=== PATIENT | male | born 1950 | race Caucasian/White ===

== ENCOUNTER 2017-05-02 12:58 | Emergency (ER) | payer BC ==
[2017-05-02] MEDS ORDERED: CIPROFLOXACIN 500 MG TAB PO ONE (14:26)
[2017-05-02] MEDS ORDERED: predniSONE 20 MG TAB PO ONE (14:27)
[2017-05-02] MEDS ORDERED: KETOROLAC TROMETHAMINE INJ 30 MG/ML VIAL IM ONE (14:27)
--- NOTE | 2017-05-02 14:29 | ED.PDOC ---
History of Present Illness - General Chief Complaint: Problem Stated Complaint: Painful, swollen R testicle Time Seen by Provider: 05/02/17 13:12 Source: patient Exam Limitations: no limitations - History of Present Illness Initial Comments: the patient is a 66-year-old male presenting to the emergency room secondary to swelling of the right testicle with associated pain for the last 24 hours. no fevers chills nausea vomiting or diarrhea. He has been having some urinary hesitancy and mild dysuria for the last month. No history of any prostate problems. He did have a colon resection in the not too distant past forulcerative colitis. He has not had any recent flares. No difficulties with his bowel recently. Timing/Duration: unsure Severity: moderate Improving Factors: nothing Worsening Factors: nothing Associated Symptoms: denies symptoms Allergies/Adverse Reactions: Allergies NO KNOWN ALLERGY Allergy (Verified 05/02/17 13:18) Home Medications: Ambulatory Orders Ciprofloxacin [Cipro] 500 mg PO BID #42 tab 05/02/17 Red Pill For Gu System 1 each PO BIDFD 05/02/17 Review of Systems - Review of Systems Constitutional: States: malaise EENTM: States: no symptoms reported Respiratory: States: no symptoms reported Cardiology: States: no symptoms reported Gastrointestinal/Abdominal: States: no symptoms reported Genitourinary: States: dysuria Musculoskeletal: States: no symptoms reported Skin: States: no symptoms reported Neurological: States: no symptoms reported All other Systems: No Change from Baseline Past Medical History (General) - Patient Medical History Hx Stroke: No Hx Congestive Heart Failure: No Hx Diabetes: No Surgical History: colectomy, other - Vaccination History Hx Influenza Vaccination: No Hx Pneumococcal Vaccination: No - Social History Hx Tobacco Use: Yes - Quit 1998 Family Medical History - Family History Father Family History: No Known Living Status: Physical Exam - Physical Exam General Appearance: Alert, No apparent distress Eye Exam: bilateral normal Ears, Nose, Throat: hearing grossly normal, normal ENT inspection Neck: non-tender, full range of motion, supple Respiratory: lungs clear, normal breath sounds, no respiratory distress, no accessory muscle use Cardiovascular/Chest: normal peripheral pulses, regular rate, rhythm, no edema Peripheral Pulses: radial,right: 2+, radial,left: 2+, dorsalis pedis,right: 2+, dorsalis pedis,left: 2+ Gastrointestinal/Abdominal: non tender, soft Rectal Exam: other - right testicle is swollen and mildly erythematous. There is some tenderness to palpation of the spermatic cordand epididymis Back Exam: no CVA tenderness, no vertebral tenderness Extremity: normal range of motion, non-tender, normal inspection, no pedal edema , normal capillary refill Neurologic: vp talent management II-XII nml as tested, alert, normal mood/affect, oriented x 3 Skin Exam: normal color Comments: Vital Signs - 24 hr 05/02/17 13:21 Temperature 99.9 F H Pulse Rate [ 85 Left Radial] Respiratory 20 Rate Blood Pressure 136/84 [Left Arm] O2 Sat by Pulse 96 Oximetry Progress - Progress Progress: 05/02/17 14:30 the patient is a 66-year-old male presenting to the emergency room secondary to what appears to be fairly apparent epididymitis and orchitis on the right of a shorter duration with possible associated longer standing prostatitis and UTI based on labs. Culture will be performed. The patient is receiving a dose of Rocephin here and we placed on ciprofloxacin for 21 days. Additionally he should obtain some saw palmetto and start taking that as a supplement for now. He should also plan on following up with urology for a formal prostate evaluation in 2-3 weeks. ER warnings were given for any worsening. - Results/Orders Results/Orders: Laboratory Tests 05/02/17 05/02/17 05/02/17 13:27 13:38 13:38 WBC 16.0 H RBC 5.40 Hgb 16.4 Hct 47.1 MCV 87.2 MCH 30.3 MCHC 34.7 RDW 12.6 Plt Count 345 MPV 7.5 Absolute Neuts (auto) 13.30 H Absolute Lymphs (auto) 1.00 Absolute Monos (auto) 1.30 H Absolute Eos (auto) 0.20 Absolute Basos (auto) 0.20 H Neutrophils % 83.1 H Lymphocytes % 6.3 L Monocytes % 8.4 Eosinophils % 1.0 Basophils % 1.2 Sodium 137 Potassium 3.9 Chloride 106 Carbon Dioxide 24 Anion Gap 10.9 L BUN 21 H Creatinine 0.96 BUN/Creatinine Ratio 21.9 H Random Glucose 102 Serum Osmolality 277.0 Calcium 9.1 Total Bilirubin 0.6 AST 20 ALT 20 Alkaline Phosphatase 62 Serum Total Protein 7.7 Albumin 4.1 Globulin 3.6 H Albumin/Globulin Ratio 1.1 Total PSA Urine Color Yellow Urine Appearance Sl cloudy Urine pH 5.5 Ur Specific [place] 1.015 Urine Protein Negative Urine Glucose (UA) Negative Urine Ketones Negative Urine Blood Moderate H Urine Nitrite Negative Urine Bilirubin Negative Urine Urobilinogen 0.2 Ur Leukocyte Esterase Moderate H Urine RBC 10-20 H Urine WBC 10-20 H Ur Epithelial Cells 0 Urine Bacteria 2+ H 05/02/17 13:38 WBC RBC Hgb Hct MCV MCH MCHC RDW Plt Count MPV Absolute Neuts (auto) Absolute Lymphs (auto) Absolute Monos (auto) Absolute Eos (auto) Absolute Basos (auto) Neutrophils % Lymphocytes % Monocytes % Eosinophils % Basophils % Sodium Potassium Chloride Carbon Dioxide Anion Gap BUN Creatinine BUN/Creatinine Ratio Random Glucose Serum Osmolality Calcium Total Bilirubin AST ALT Alkaline Phosphatase Serum Total Protein Albumin Globulin Albumin/Globulin Ratio Total PSA 7.51 H Urine Color Urine Appearance Urine pH Ur Specific [place] Urine Protein Urine Glucose (UA) Urine Ketones Urine Blood Urine Nitrite Urine Bilirubin Urine Urobilinogen Ur Leukocyte Esterase Urine RBC Urine WBC Ur Epithelial Cells Urine Bacteria Departure - Departure Clinical Impression: Epididymitis Disposition: Discharge to Home or Self Care Condition: Fair Departure Forms: ED Discharge - Pt. Copy, Patient Portal Self Enrollment Instructions: DI for Epididymitis, DI for Acute Prostatitis Diet: regular diet Activity: increase activity as tolerated Referrals: Efraín Smith III, MD [Primary Care Provider] - 1-2 Weeks Prescriptions: Ciprofloxacin [Cipro] 500 mg PO BID #42 tab Home Medications: Ambulatory Orders Ciprofloxacin [Cipro] 500 mg PO BID #42 tab 05/02/17 Red Pill For Gu System 1 each PO BIDFD 05/02/17 Additional Instructions: the patient is a 66-year-old male presenting to the emergency room secondary to what appears to be fairly apparent epididymitis and orchitis on the right of a shorter duration with possible associated longer standing prostatitis and UTI based on labs. Culture will be performed. The patient is receiving a dose of Rocephin here and we placed on ciprofloxacin for 21 days. Additionally he should obtain some saw palmetto and start taking that as a supplement for now. He should also plan on following up with urology for a formal prostate evaluation in 2-3 weeks. ER warnings were given for any worsening.
[2017-05-02] MEDS ORDERED: cefTRIAXone SODIUM 1 GM VIAL IM ONE (14:30)
[2017-05-02] MEDS ORDERED: LIDOCAINE 1% 10 ML VIAL INJ ONE (14:42)
[2017-05-02 15:11] VITALS: TEMP 98.4
[2017-05-02 15:28] VITALS: BP 128/66; O2SAT 97
== END 2017-05-02 15:25 | disposition home or self-care (01) ==
LOC: ER 12:58
DX: N45.1 Epididymitis (principal); Z87.891 Personal history of nicotine dependence
CPT/HCPCS: 36415; 80053; 81001; 85025; 87086; 87088; 87186; G0103; J0696; J1885; J7512

== ENCOUNTER 2017-05-07 17:01 | Inpatient (IN) | payer BC ==
--- NOTE | 2017-05-07 17:03 | HP ---
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 This pain got worse and was located in the testicular region as well as into the right aspect of his upper thigh. He was referred to the Emergency Room on May 02 of this year which was last Friday. He saw a nurse practitioner who referred him to the Emergency Room at that time. He was given a diagnosis of epididymitis and questionable torsion. He was seen in the Emergency Room and was noted to have a white count of 16,000 and was given a shot of Rocephin and Cipro tablets to continue. His general condition is worsened with the pain elevating to involve the suprapubic region. Urinalysis from the Emergency Room did grow Klebsiella species. He also had an elevated PSA of over 7. He was seen in the clinic with Dr. Smith earlier today and was found to have an elevated white count of over 17,000 which was greater than it was last Friday. He has had some low-grade fever and generalized malaise. He has lost about 5 pounds of weight. He has not been able to eat or drink that much and is having difficulty working as a arc welder because of the pain. Dr. Smith wishes the patient to be admitted specifically to continue with a more vigorous and parenteral antibiotic program, but also to get additional studies, including ultrasound, etc. PAST MEDICAL HISTORY: Otherwise unremarkable. PAST SURGICAL HISTORY: 1. Sigmoid colectomy with subsequent colostomy placed in the left abdomen. 2. Bruno pouch to help close off the rectal region, this being performed in 2009. CURRENT MEDICATIONS: 1. A medicine he takes for his ulcerative colitis which we are encouraging the family to bring from home. ALLERGIES: NONE KNOWN. FAMILY HISTORY: Negative. 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 He stopped smoking in about 1981. REVIEW OF SYSTEMS: Some 5 pound weight loss in the last week. Low-grade fever and mild chills evident recently. HEENT: Hearing and vision appear to be normal. LUNGS: No significant cough, shortness of breath or sputum production. CARDIOVASCULAR: No chest pains or palpitations. ABDOMEN: Soft with tenderness especially in the lower quadrants. Bowel tones are present. No organomegaly evident. GENITOURINARY: Very large, firm, heavy right testicle is noted which is very tender to palpation. No significant hernia associated with these symptoms at this time. NEUROLOGIC: He feels a little weak and no significant headaches at this time. PHYSICAL EXAMINATION: VITAL SIGNS: Temperature 97.7 but it was 99.9 in the Emergency Room. Pulse 85 , blood pressure 132/80, pulse oximetry 98% on room air. Weight 71.2 kilos. GENERAL: The patient is awake, alert and oriented, and a good communicator and a good historian. HEENT: Unremarkable. NECK: Supple. CHEST: Lungs are clear. Slightly diminished breath sounds. CARDIOVASCULAR: Heart tones somewhat distant yet fairly normal. ABDOMEN: Soft with marked tenderness, especially in the lower quadrants and suprapubically. No masses noted. GENITOURINARY: Right testes is heavy, much larger than the left, very tender and quite firm to palpation. Slight irregularities at the tip inferiorly and some soft swelling over the base superiorly. There is no tenderness in the epididymis on the left and most of the tenderness is within the testes on the right. EXTREMITIES: Within normal limits. NEUROLOGIC: Within normal limits. LABORATORY STUDIES: White count was 16,000 in the Emergency Room last Friday and was over 17,[address] Smith' office today. His original urinalysis did show pyuria, hematuria and 2+ bacteriuria which grew Klebsiella pneumoniae which showed resistance to Nitrofurantoin, Piperacillin as well as Augmentin. Chemistry showed potassium 3.9 last Friday while PSA was elevated at 7.5, BUN 21. Blood count then was 16,000 with 83% neutrophils, hemoglobin was 16.4 on . No x-ray reports. ASSESSMENT: 1. Acute right testicular pain with marked swelling, firmness and heaviness suggesting a testicular abscess with ultrasound to also evaluate for the possibility of an ischemic or torsion of the testicle and possibility of epididymitis. 2. Acute prostatitis with elevated PSA. 3. Urinary tract infection with Klebsiella noted on recent ER urine specimen. 4. Leukocytosis increasing from 16,000 to 17,000 even on outpatient treatment. 5. History of ulcerative colitis with sigmoid colectomy and colostomy to the left colon with Bruno's pouch of rectal residual. PLAN: The patient will be started on Levaquin parenterally 750 mg daily. To this will be added Doxycycline 100 mg b.i.d. Hot and cold compresses to scrotal support necessary. Pain control important. Try Align b.i.d. Repeat urinalysis and get an ultrasound in the morning of the testicles specifically to evaluate for abscess and vascularity, etc. [facility][id number] [facility]
[2017-05-07] MEDS ORDERED: SODIUM CHLORIDE 0.9% (FLUSH) 10 ML SYG IV PRN (17:47)
[2017-05-07] MEDS ORDERED: MAGNESIUM HYDROXIDE 30 ML UD PO PRN (17:52)
[2017-05-07] MEDS ORDERED: HYDROcodone 5MG/APAP 325MG 1 EA TAB PO PRN (17:52)
[2017-05-07] MEDS: BIFIDOBACTERIUM INFANTIS 4 MG CAP PO SCH ×2 (18:40→20:28)
[2017-05-07] MEDS: levoFLOXacin 750MG IV 750 MG in PREMIX BAG 1 BAG IVPB SCH (18:40)
[2017-05-07] MEDS: KETOROLAC TROMETHAMINE INJ 30 MG/ML VIAL IV SCH (18:40)
[2017-05-07] MEDS: IV SET AND CAP CHANGE INJ INJ SCH (18:49)
[2017-05-07] MEDS: DOXYCYCLINE HYCLATE CAP 100 MG CAP PO SCH (20:27)
[2017-05-07] MEDS: SODIUM CHLORIDE 0.9% 1000ML 1,000 ML IVS PRN (20:28)
[2017-05-08] MEDS: KETOROLAC TROMETHAMINE INJ 30 MG/ML VIAL IV SCH ×4 (01:18→17:14)
[2017-05-08] MEDS: OMEPRAZOLE CAP 20 MG CAP PO SCH (05:39)
[2017-05-08] MEDS ORDERED: [UNRECOGNIZED DRUG - OTHER] PO SCH (07:30)
[2017-05-08] MEDS: SODIUM CHLORIDE 0.9% 1000ML 1,000 ML IVS PRN ×2 (08:45→21:16)
[2017-05-08] MEDS: BIFIDOBACTERIUM INFANTIS 4 MG CAP PO SCH ×2 (08:50→21:14)
[2017-05-08] MEDS: DOXYCYCLINE HYCLATE CAP 100 MG CAP PO SCH ×2 (08:50→21:14)
[2017-05-08] MEDS: HYDROcodone 10MG/APAP 325MG 1 EA TAB PO PRN ×3 (12:49→21:15)
--- NOTE | 2017-05-08 13:53 | US ---
EXAM DESCRIPTION: Testicular CLINICAL HISTORY: 66 years Male, painful, swollen right teste COMPARISON: None. TECHNIQUE: Real-time sonographic images of the scrotum are obtained. FINDINGS: The right testicle measures 3.6 x 2.8 x 2.5 cm. The left testicle measures 4.3 x 2.6 x 2.6 cm. Both testicles demonstrate normal homogeneous echogenicity and normal symmetric vascular flow. The right epididymis measures 1.5 x 2.1 cm. Right epididymis is somewhat heterogeneous in echogenicity and mildly increased vascular flow. The left epididymal head measures 1.1 x 1.3 cm. Small anechoic fluid collection is seen in the right scrotum with trace anechoic fluid on the left. IMPRESSION: Mild simple right hydrocele with trace left hydrocele. Findings suggest right epididymitis. Electronically signed by: Kan Jolly MD 05/08/2017 1:52 PM CDT
[2017-05-08] MEDS: levoFLOXacin 750MG IV 750 MG in PREMIX BAG 1 BAG IVPB SCH (17:15)
[2017-05-08] MEDS: MESALAMINE 1.2 GM PO SCH (17:24)
--- NOTE | 2017-05-08 19:51 | PCM.CORE ---
Physician DVT/VTE - Nurse DVT Assessment & Total Each Risk Factor Represents 2 Points: Age 60-74 DVT Assessment Score: 2 - 2 Moderate Risk Treatments: Early Ambulation *, Sequential Compression Device Pharmacological: Enoxaparin 40mg SQ Daily
--- NOTE | 2017-05-08 19:57 | PN ---
DATE: 05/08/17 SUBJECTIVE: The patient has been in the bed most of the day and is encouraged to increase activity level. Still with a fair amount of pain most likely less noted in the lower abdomen region. No significant fever. Appetite is good. He continues on his special medications for his chronic ulcerative colitis. OBJECTIVE: Afebrile, blood pressure 136/69, pulse oximetry 96%. The patient is alert in no acute distress. ABDOMEN: Shows some tenderness in the lower abdomen still with marked tenderness and swelling of the right testicle, though seemingly less tender today compared to yesterday. LABORATORY: White count 12,900 with 81% neutrophils, hemoglobin 14.7. Chemistries are generally within normal limits except the albumin is 2.9. Urinalysis shows some ketones. No cultures obtained. Testicular ultrasound performed and is consistent with a right epididymitis as well as a mild simple right hydrocele and a trace left hydrocele. ASSESSMENT: 1. Acute right epididymitis having failed outpatient therapy currently on parenteral therapy. 2. Evidence of prostatitis with elevated PSA. 3. Leukocytosis showing some improvement. 4. History of chronic ulcerative colitis currently on chronic medication to assist with suppression of symptoms named Lialda 1.2 gram tablet b.i.d. PLAN: Continue parenteral IV therapy and reevaluate in the morning. Increase activity level. Continue with DVT prophylaxis and close observation. [facility][id number]
[2017-05-08] MEDS ORDERED: ENOXAPARIN SODIUM 40 MG/0.4 ML SYG SUBCU SCH (20:00)
[2017-05-08] MEDS ORDERED: KETOROLAC TROMETHAMINE INJ 30 MG/ML VIAL ONE (20:08)
[2017-05-09] MEDS ORDERED: ALUM & MAG HYDROX-SIMETHICONE 30 ML UD PO PRN (03:41)
[2017-05-09] MEDS ORDERED: traMADol HCL 50 MG TAB PO PRN (03:42)
[2017-05-09] MEDS: ONDANSETRON INJ 4 MG/2 ML VIAL IV PRN ×3 (03:45→19:39)
[2017-05-09] MEDS: OMEPRAZOLE CAP 20 MG CAP PO SCH (06:10)
[2017-05-09] MEDS: SODIUM CHLORIDE 0.9% 1000ML 1,000 ML IVS PRN ×2 (09:30→21:45)
[2017-05-09] MEDS: MESALAMINE 1.2 GM PO SCH ×2 (09:57→17:26)
[2017-05-09] MEDS: DOXYCYCLINE HYCLATE CAP 100 MG CAP PO SCH ×2 (09:58→20:25)
[2017-05-09] MEDS: BIFIDOBACTERIUM INFANTIS 4 MG CAP PO SCH ×2 (09:58→20:25)
--- NOTE | 2017-05-09 14:54 | PN ---
DATE: 05/09/17 SUBJECTIVE: The patient is lying in the bed resting. He has had spells where his lower abdomen tends to act up with associated nausea, especially noted during the night. The pain in the testicle seems to be slightly improved. He has tolerated increased activity quite well, but still with very poor appetite with getting nauseated even at the smell of food. No previous history of fatty food intolerance. OBJECTIVE: Current pain in his abdomen seems to be towards the left lower quadrant below the ostomy site. He describes no discomfort in the right upper quadrant or the right side of the abdomen in the region of the gallbladder. His ostomy is still nicely functional with some somewhat semi-liquid stool being present. LABORATORY: White count down to 12,900 from 17,000 yesterday, but still elevated. Hemoglobin 14.7. Of significance is an elevated C-reactive protein of 19 with repeat tomorrow to evaluate potentially the clinical significance thereof. Chemistries otherwise within normal limits, still with some decreased serum osmolality, slowly improving. Urinalysis showed ketonuria, otherwise clean. No cultures obtained. Testicular ultrasound did reveal a fairly large right hydrocele and a small one on the left with evidence of fairly significant right epididymitis on ultrasound exam with treatment to continue. ASSESSMENT: 1. Acute, symptomatic right epididymitis, having failed outpatient therapy and currently on parenteral fluoroquinolone as well as p.o. doxycycline treatment. 2. Evidence of prostatitis with elevated PSA with results in the clinic. 3. Leukocytosis, persistent with some slight improvement with followup necessary. 4. History of chronic ulcerative colitis, currently on chronic medication to assist with suppression of symptoms, the medicine being named Lialda 1.2 gram tablet b.i.d. 5. Nausea and vomiting, possibly related to [place], but continue evaluation for intraabdominal pathology. 6. A small skin tag or dermal papilloma on the tip of his nose which is of significant concern to the and can be approached nicely in the outpatient clinic with Dr. Smith' good care. PLAN: Continue one more evening of Levaquin parenteral therapy. Recheck CBC as well as C-reactive protein in the morning, hopefully showing some improvement. Try to give tramadol instead of [place] for pain relief. Increase activity levels and close observation necessary. Dr. Smith can approach and remove the skin tag from the nose by several means at his disposal. [facility][id number] [facility]
[2017-05-09] MEDS: levoFLOXacin 750MG IV 750 MG in PREMIX BAG 1 BAG IVPB SCH (18:15)
[2017-05-09] MEDS ORDERED: ENOXAPARIN SODIUM 40 MG/0.4 ML SYG SUBCU ONE (19:11)
[2017-05-09] MEDS: ENOXAPARIN SODIUM 40 MG/0.4 ML SYG SUBCU SCH (20:25)
[2017-05-10] MEDS: ONDANSETRON INJ 4 MG/2 ML VIAL IV PRN (05:58)
[2017-05-10] MEDS: OMEPRAZOLE CAP 20 MG CAP PO SCH (05:58)
[2017-05-10] MEDS: MESALAMINE 1.2 GM PO SCH ×2 (08:30→17:16)
[2017-05-10] MEDS: DOXYCYCLINE HYCLATE CAP 100 MG CAP PO SCH ×2 (09:49→20:50)
[2017-05-10] MEDS: BIFIDOBACTERIUM INFANTIS 4 MG CAP PO SCH ×2 (09:49→20:50)
[2017-05-10] MEDS: SODIUM CHLORIDE 0.9% 1000ML 1,000 ML IVS PRN (10:30)
[2017-05-10] MEDS: ACETAMINOPHEN 325 MG TAB PO PRN ×2 (11:56→16:30)
[2017-05-10] MEDS: levoFLOXacin 750MG IV 750 MG in PREMIX BAG 1 BAG IVPB SCH (17:16)
[2017-05-10] MEDS: IV SET AND CAP CHANGE INJ INJ SCH (18:08)
[2017-05-10] MEDS ORDERED: traMADol HCL 50 MG TAB PO PRN (20:09)
[2017-05-10] MEDS: SODIUM CHLORIDE 0.9% (FLUSH) 10 ML SYG IV SCH (20:40)
--- NOTE | 2017-05-10 20:45 | PN ---
DATE: 05/10/17 SUPERVISING PHYSICIAN: Marty Gallagher M.D. SUBJECTIVE: The patient is sitting in his hospital bed. is at the bedside. He continues complaints of a mild headache, although he has not asked for anything for his headache. I have encouraged him to ask for his Tylenol. He denies any testicular pain but he does say that he is nauseated and has not eaten very much. He also says that he has has vomited numerous times and although the nursing staff has asked him to let them see his emesis, he says he has vomited in the sink and has not called nursing to see it. He does say that he has eaten a few snacks that his has brought in. He denies any significant abdominal pain, chest pain or shortness of breath. OBJECTIVE: VITAL SIGNS: His T max 24 hours is 99.1, heart rate 67, blood pressure 143/76, respiratory rate 20, O2 sat is 100% on room air. RESPIRATORY: Clear to auscultation bilaterally. CARDIAC: Regular rate and rhythm. ABDOMEN: Soft, nondistended, non-tender. Bowel sounds are positive. EXTREMITIES: No cyanosis, clubbing or edema. NEUROLOGIC: He is awake, alert and oriented times three. LABORATORY: Chemistries are basically within normal limits with the exception of his glucose is slightly elevated at 114 and serum osmolality is slightly low at 272.5. C reactive protein has come down to 13.2. WBCs are improved but are still 11 with neutrophils of 79.4. Hemoglobin and hematocrit are 13.4 and 39.0. All other labs and films have been reviewed via the EMR. ASSESSMENT: 1. Acute symptomatic right epididymitis having failed outpatient treatment and currently on parenteral Levaquin as well as p.o. Doxycycline. 2. Evidence of prostatitis with elevated PSA as outpatient examination. 3. Leukocytosis that is persistent but with some improvement. 4. History of chronic ulcerative colitis currently on chronic medications to assist with suppressing of symptoms. 5. Nausea and vomiting that persists. 6. Headache of unknown origin most likely stress related although he has not requested any treatment at this time. PLAN: We will continue present supportive care. I had hoped to discharge him today, but with his continued nausea and reported vomiting I will evaluate his intake of food today. Previously he had been taking oral fluids without any problems. I will discontinue his IV fluids for now and restart if needed. I will also repeat some lab in the morning and continue him on IV Levaquin. Hopefully in the morning his labs improve and he is tolerating food without any problems.,he can be discharged home with close followup with his primary care physician, Dr. Smith, next week. We will continue him on his Doxycycline on discharge and he can resume his Cipro from his previous clinic appointment. Otherwise we will continue to monitor him closely and followup as needed. Dr. Gallagher is the collaborating physician available for consultation. #[id number] [facility]
[2017-05-10] MEDS: ENOXAPARIN SODIUM 40 MG/0.4 ML SYG SUBCU SCH (20:51)
[2017-05-11] MEDS: OMEPRAZOLE CAP 20 MG CAP PO SCH (05:48)
[2017-05-11] MEDS: ACETAMINOPHEN 325 MG TAB PO PRN (05:52)
[2017-05-11] MEDS ORDERED: POTASSIUM CHLORIDE 20 MEQ TAB PO ONE (07:41)
[2017-05-11] MEDS ORDERED: CIPROFLOXACIN 500 MG TAB ONE (07:55)
[2017-05-11] MEDS: MESALAMINE 1.2 GM PO SCH (08:10)
[2017-05-11] MEDS: DOXYCYCLINE HYCLATE CAP 100 MG CAP PO SCH (08:11)
[2017-05-11] MEDS: BIFIDOBACTERIUM INFANTIS 4 MG CAP PO SCH (08:11)
[2017-05-11] MEDS: SODIUM CHLORIDE 0.9% (FLUSH) 10 ML SYG IV SCH (08:11)
[2017-05-11 08:25] VITALS: BP 135/74; TEMP 97.5; O2SAT 100
[2017-05-11] MEDS ORDERED: CIPROFLOXACIN 500 MG TAB PO SCH (09:00)
--- NOTE | 2017-05-11 16:46 | DS ---
DISCHARGE DIAGNOSES: 1. Acute symptomatic right epididymitis having failed outpatient treatment and on Levaquin and Doxycycline in the hospital. He was treated with oral Cipro as an outpatient. 2. Evidence of prostatitis with elevated PSA as outpatient examination. 3. Leukocytosis that is persistent but with some improvement. 4. History of chronic ulcerative colitis currently on chronic medications to assist with suppressing of symptoms. 5. Nausea and vomiting that has resolved. 6. Headache of unknown origin most likely stress related, the pain has been alleviated with Tylenol. 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 This pain got worse and was located in the testicular region as well as into the right aspect of his upper thigh. He saw a nurse practitioner who referred him to the Emergency Room at that time. He was given a diagnosis of epididymitis and questionable torsion. He was seen in the Emergency Room and was noted to have a white count of 16,000 and was given a shot of Rocephin and Cipro tablets to continue. His general condition is worsened with the pain elevating to involve the suprapubic region. Urinalysis from the Emergency Room did grow Klebsiella species. He also had an elevated PSA of over 7. He was seen in the clinic with Dr. Smith on date of admission and was found to have an elevated white count of over 17,000 which was greater than it was last Friday. He has had some low-grade fever and generalized malaise. He has lost about 5 pounds of weight. 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 Patient was admitted from Dr. Smith' office specifically to continue with a more vigorous and parenteral antibiotic program, but also to get additional studies, including ultrasound, etc. HOSPITAL COURSE: The patient was given high-dose IV Levaquin as well as put on doxycycline in the hospital. His testicular ultrasound was performed and it was consistent with right epididymitis as well as a mild simple right hydrocele and trace of left hydrocele. His initial white count 12,900 with a CRP of 19. His chemistries were basically within normal limits and his urine did have a trace of urine ketones present. He did have some nausea and vomiting associated with the pain as well as ulcerative colitis symptoms. He was given Zofran for the nausea and vomiting as well as hydrocodone and later tramadol for the pain. His WBCs today are 9.6, CRP has come down to 10.3. He does have slightly low potassium at 3.5. His other chemistries are basically within normal limits. Over the last 24 hours he has had no nausea or vomiting. He has no complaints abdominal pain, his testicular pain h as resolved. He will be discharged home today. DISCHARGE PLAN: The patient will be discharged home in stable condition. He is to resume his previous activity as well as restart his Cipro that he received at Dr. Smith' office. I have also sent him home on some doxycycline. Most likely he will need a long-term therapy for the prostatitis but I will leave that up to Dr. Smith when he sees him on followup, May 16 at 8:45. I have also given him a prescription for some Align. He refused any pain medications. He is to return to Dr. Smith' office or to followup in the Emergency Room for any further problems or complications. Dr. Gallagher is the collaborating physician available for consultation available for consultation. DISCHARGE MEDICATIONS: 1. Methylamine. 2. Cipro. 3. Align. 4. Doxycycline. [facility][id number] [facility]
== END 2017-05-11 09:46 | disposition home or self-care (01) | DRG 728 ==
LOC: MS 17:01
PROVIDERS: ADMIT Emergency Medicine; ATTEND Nurse Practitioner Acute Care
DX: N45.1 Epididymitis (principal); K51.90 Ulcerative colitis, unspecified, without complications; N39.0 Urinary tract infection, site not specified; N41.0 Acute prostatitis; G44.209 Tension-type headache, unspecified, not intractable; R11.2 Nausea with vomiting, unspecified; N43.3 Hydrocele, unspecified; L91.8 Other hypertrophic disorders of the skin; B96.1 Klebsiella pneumoniae [K. pneumoniae] as the cause of diseases classified elsewhere; Z16.39 Resistance to other specified antimicrobial drug; Z90.49 Acquired absence of other specified parts of digestive tract; Z93.3 Colostomy status

== ENCOUNTER → 2017-05-26 | Outpatient (CLI) | payer BC | END | disposition home or self-care (01) | LOC: GMAL 12:31 | PROVIDERS: ATTEND Family Medicine | DX: R97.20 Elevated prostate specific antigen [PSA] (principal) ==

== ENCOUNTER 2017-06-16 15:53 | Inpatient (IN) | payer BC ==
[2017-06-16] MEDS ORDERED: SODIUM CHLORIDE 0.9% 1000ML 1,000 ML IVS ONE (16:26)
--- NOTE | 2017-06-16 16:28 | ED.PDOC ---
History of Present Illness - General Chief Complaint: Abdominal Pain Stated Complaint: abdominal pain Time Seen by Provider: 06/16/17 16:25 Information Source: patient Exam Limitations: no limitations - History of Present Illness Initial Comments: Santiago Rubio 76 y/o male with history of ulcerative colitis s/p colectomy / colostomy brought to er by after he had multiple episodes of nausea vomiting and had bowel movement thru his colostomy followed by cramp like abdominal pain which has been constant. Abdominal Pain Onset Location: generalized abdomen Pain Radiation: no radiation Quality: cramping, steady Timing/Duration: 4-6 hours Improving Factors: nothing Worsening Factors: nothing Associated Symptoms: other - see hpi Review of Systems - Review of Systems All other Systems: Reviewed and Negative, No Change from Baseline Past Medical History (General) - Patient Medical History Hx Seizures: No Hx Stroke: No Hx Asthma: No Hx of COPD: No Hx Congestive Heart Failure: No Hx Pacemaker: No Hx Hypertension: No Hx Diabetes: No Hx MRSA: No Hx Other PMH: Yes - treated for prostatitis in february - Surgical History: other - colectomy;colostomy-2011 - Vaccination History Hx Influenza Vaccination: No Hx Pneumococcal Vaccination: No - Social History Hx Tobacco Use: Yes - Quit 1998 Hx Alcohol Use: Yes - Drinks alcohol frequently Hx Substance Use: No Hx Physical Abuse: No Hx Emotional Abuse: No - Activities of Daily Living Grooming Ability: Standby Assistance Toileting Ability: Independent Family Medical History - Family History Father Family History: No Known Living Status: Hx Family Asthma: No Hx Family Congestive Heart Failure: No Hx Family Hypertension: No Hx Family Stroke: No Hx Cardiac Disease: No Hx Family Diabetes: No Hx Family Cancer: No Hx Family;Other: Father's was unknown, possibly from ETOH. Mother Family History: No Known Living Status: Hx Family Asthma: No Hx Family Congestive Heart Failure: No Hx Family Hypertension: No Hx Family Stroke: No Hx Cardiac Disease: No Hx Family Diabetes: No Hx Family Cancer: No Hx Family;Other: Cause of unknown. Physical Exam - Physical Exam General Appearance: Alert, Anxious, No apparent distress Eyes, Ears, Nose, Throat Exam: PERRL/EOMI, normal ENT inspection, pharynx normal Neck: non-tender, supple, normal inspection Respiratory: chest non-tender, lungs clear Cardiovascular/Chest: normal peripheral pulses, regular rate, rhythm, no gallop , no murmur Peripheral Pulses: No deficit Gastrointestinal/Abdominal: soft, tenderness - all over no peritoneal signs, other - patent colostomy Extremity: non-tender, no pedal edema, no calf tenderness Neurologic: alert, normal mood/affect, oriented x 3 Skin Exam: normal color, warm/dry Lymphatic: no adenopathy Progress - Progress Progress: 06/16/17 17:01 Vital Signs - 8 hr 06/16/17 16:44 Temperature 98.7 F Pulse Rate [ 68 left brachial] Respiratory 20 Rate Blood Pressure 120/63 [left brachial] O2 Sat by Pulse 96 Oximetry - Results/Orders Results/Orders: Laboratory Tests 06/16/17 06/16/17 16:35 16:35 WBC 14.0 H RBC 5.11 Hgb 15.4 Hct 44.4 MCV 86.8 MCH 30.2 MCHC 34.8 RDW 13.9 Plt Count 289 MPV 7.3 L Absolute Neuts (auto) 12.70 H Absolute Lymphs (auto) 0.70 L Absolute Monos (auto) 0.50 Absolute Eos (auto) 0.00 Absolute Basos (auto) 0.10 Neutrophils % 90.5 H Lymphocytes % 4.9 L Monocytes % 3.9 Eosinophils % 0.1 L Basophils % 0.6 Sodium 137 Potassium 4.1 Chloride 102 Carbon Dioxide 25 Anion Gap 14.1 BUN 19 H Creatinine 1.09 BUN/Creatinine Ratio 17.4 Random Glucose 124 H Serum Osmolality 277.5 Calcium 9.8 Total Bilirubin 0.6 AST 29 ALT 37 Alkaline Phosphatase 78 Serum Total Protein 8.4 H Albumin 4.4 Globulin 4.0 H Albumin/Globulin Ratio 1.1 Lipase 29 D/W Dr. Espinoza /Mo,ANP-Hospitalist for admit - EKG/XRAY/CT XRAY: chest - no obstruction,no free air,atelectasis Departure - Departure Clinical Impression: Intestinal perforation, History of chronic ulcerative colitis Abdominal pain Qualifiers: Abdominal location: left lower quadrant Qualified Code(s): R10.32 - Left lower quadrant pain Nausea & vomiting Qualifiers: Vomiting type: unspecified Vomiting Intractability: non-intractable Qualified Code(s): R11.2 - Nausea with vomiting, unspecified Time of Disposition: 21:13 Disposition: Admit Patient Condition: Fair Departure Forms: Patient Portal Self Enrollment Referrals: Efraín Smith III, MD [Primary Care Provider] - 1-2 Weeks Home Medications: Ambulatory Orders RX: Ciprofloxacin [Cipro] 500 mg PO BID 05/07/17 RX: Mesalamine [Lialda] 1.2 gm PO BID 05/07/17 RX: Bifidobacterium Infantis [Align] 4 mg PO BID #60 capsule 05/11/17 RX: Ciprofloxacin [Cipro] 500 mg PO BID 05/11/17 RX: Doxycycline Hyclate [Vibramycin] 100 mg PO BID #12 capsule 05/11/17 Decision To Admit - Decistion To Admit Decision to Admit Reason: Admit from ER Decision to Admit Date: 06/16/17 - D/W Dr. ESPINOZA-Sheila Newell-ANP/Hospitalist Decision to Admit Time: 21:12
[2017-06-16] MEDS ORDERED: MORPHINE SULFATE INJ 10 MG/ML VIAL IV ONE (16:53)
[2017-06-16] MEDS ORDERED: PROMETHAZINE HCL INJ 25 MG/ML VIAL IM ONE (16:53)
--- NOTE | 2017-06-16 16:53 | RAD ---
PROCEDURE: Abdomen Flat Upright Clinical History: pain Indication: Abdominal pain Comparison: None Technique: Two views of the abdomen and pelvis were done. Findings: There is no gross evidence of free air in the abdomen or the pelvis . The small and large bowel gas pattern does not show any evidence of obstruction, ileus or bowel wall thickening. There is no visualization of radiopaque calculi in the outline of the urinary tract. There is no significant constipation. The visualized bilateral lung bases are unremarkable. Impression: Unremarkable bowel gas pattern Location of Interpretation: [id number] Electronically signed by: Francis Dorman MD 06/16/2017 4:52 PM CDT Workstation: [id number]
--- NOTE | 2017-06-16 16:59 | RAD ---
EXAM DESCRIPTION: Chest,1 View CLINICAL HISTORY: 66 years Male pain COMPARISON: None. FINDINGS: The cardiomediastinal silhouette appears unremarkable. No consolidating infiltrates or pleural effusions. No pneumothorax. Small amount of atelectasis in the lung bases bilaterally. IMPRESSION: No acute abnormality is identified. Electronically signed by: Valeria Gonzalez 06/16/2017 4:57 PM CDT
[2017-06-16] MEDS ORDERED: PANTOPRAZOLE INJECTION 80 MG in SODIUM CHLORIDE 0.9% 100ML 80 ML IVPB ONE (18:01)
[2017-06-16] MEDS ORDERED: SODIUM CHLORIDE 0.9% 100ML 100 ML IVPB ONE ×2 (18:29→20:25)
[2017-06-16] MEDS ORDERED: PANTOPRAZOLE SODIUM IV 40 MG VIAL ONE (18:29)
[2017-06-16] MEDS ORDERED: PIPERACILLIN/TAZOBACTAM 3.375 GM VIAL IVPB ONE ×3 (20:00→23:40)
[2017-06-16] MEDS ORDERED: PIPERACILLIN/TAZOBACTAM 4.5 GM in SODIUM CHLORIDE 0.9% 100ML 100 ML IVPB ONE (20:15)
[2017-06-16] MEDS ORDERED: PIPERACILLIN/TAZOBACTAM 3.375 GM in SODIUM CHLORIDE 0.9% 100ML 100 ML IVPB ONE (20:29)
--- NOTE | 2017-06-16 21:46 | HP ---
SUPERVISING PHYSICIAN: Marty Gallagher MD CHIEF COMPLAINT: Abdominal pain. HISTORY OF PRESENT ILLNESS: Mr. Rubio is a 66-year-old, male patient with a history of ulcerative colitis with a sigmoid colectomy with a Bruno's pouch for spontaneous perforation of the sigmoid colon that was performed in 2009. He was brought to the Emergency Room by his after he had multiple episodes of nausea and vomiting and he started having some loose bowel movements through his colostomy and some abdominal cramping and pain that had become quite consistent. He also has a recent history of being treated for prostatitis and just finished a 21 day course of Bactrim. His primary care provider is Dr. Smith. Today in the Emergency Room, laboratory studies showed white count elevated to 14,000 with a left shift noted. Chemistries showed normal electrolytes and renal function as well as pancreatic enzymes. Urinalysis showed he had 40 of ketones, otherwise was within normal limits. Radiographically, he had an initial abdominal x-ray in the Emergency Department and per radiologic interpretation, he was noted to have an unremarkable gas pattern. This was followed up with an abdominopelvic CT with contrast and per radiologic interpretation, showed findings concerning for microperforation in the left lower quadrant, but no evidence of abscess formation. Vital signs showed that he was afebrile and hemodynamically stable with blood pressure 103/ 64, heart rate 52. Given the findings on CT, Dr. Gallardo was consulted through the Emergency Room by Dr. Parisi. Dr. Parisi requested that I talk to Dr. Gallardo in regard to admission of the patient. After consulting with Dr. Gallardo, the patient now is going to be admitted to the Medical/Surgical Floor for the initiation of parenteral antibiotics for treatment of complications of ulcerative colitis with concerns for microperforation. He was started on antibiotics in the Emergency Room to include Flagyl and Zosyn. He was admitted to the Medical/Surgical Floor in stable condition. PAST MEDICAL HISTORY: 1. Ulcerative colitis first diagnosed in 2003 with a sigmoid colectomy and Bruno's pouch performed in 2009 for spontaneously perforated sigmoid. 2. History of migraines and tension headaches. 3. History of chronic prostatitis and epididymitis having been recently treated with antibiotics within the last month with a 21 day course of Bactrim and having previously been hospitalized in April of this year for acute prostatitis and concerns for epididymitis. PAST SURGICAL HISTORY: 1. Sigmoid colectomy with Bruno's pouch for spontaneous perforation of the sigmoid in November 2009. 2. Stomatitis with stricture revision in 2009. 3. Colonoscopy in July [address] Watkins with findings of patent left sided colectomy anastomosis with normal proximal colon and erythematous surgical stoma that was benign biopsy with a noted non- patent rectal pouch with 10 cm anastomosis that was biopsied and found to be benign. HOME MEDICATIONS: 1. Lialda 1.2 mg p.o. twice daily. 2. Bactrim 21 day course to be completed on 06/17/17. ALLERGIES: NO KNOWN DRUG ALLERGIES. FAMILY HISTORY: Father is secondary to complications from alcohol abuse. Mother is from unknown causes. 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 He is . He drinks alcohol on rare occasions. He does have a past history of cigarette smoking, but quit in the . He denies any illicit drug u se. REVIEW OF SYSTEMS: CONSTITUTIONAL: Denies any fevers, general malaise, or unintentional weight loss. HEENT: No reported hearing or vision changes. RESPIRATORY: No cough, shortness of breath, or sputum production. CARDIOVASCULAR: Denies chest pain or palpitations. No syncopal episodes. GASTROINTESTINAL: As noted in history of present illness. Denies abdominal pain with loose stools noted in colostomy bag, but no reported melenic or bright red blood in stools. The patient does note as per history of present illness some acute nausea and vomiting. GENITOURINARY: As noted in history of present illness. Just recently treated for chronic prostatitis and epididymitis involving the right testicle which the patient reports has shown improvement. NEUROLOGIC: No syncopal episodes, no focal weaknesses. He does have a history of migraine headaches and no recent headaches. PHYSICAL EXAMINATION: VITAL SIGNS: Temperature 98.7. Pulse 68. Blood pressure 120/63. Respirations 20. O2 saturation 96% on room air. Admission weight 78.4 kg. GENERAL: On admission to the Medical/Surgical Floor, the patient appears to be comfortable and in no acute distress. HEENT: Tympanic membranes clear bilaterally. Oropharynx is pink, moist without any lesions. NECK: Supple, nontender with full range of motion. CHEST: Lungs clear to auscultation bilaterally without any rhonchi, wheezes, or rales. ABDOMEN: Soft with some notable diffuse tenderness, but no rebound tenderness. No peritoneal signs. There was note a fairly large ventral hernia as well as area of herniation around the colostomy bag and stoma area which the patient says is a little bit larger than normal, but there is no tenderness noted on palpation. Stoma appears to be patent and healthy in appearance. EXTREMITIES: There is no cyanosis, clubbing or edema. NEUROLOGIC: The patient is alert and oriented times three. LABORATORY: White count shows leukocytosis of 14,000 with hemoglobin 54, hematocrit 44.4, platelet count 289,000 with differential showing an early left shift. Chemistries show normal electrolytes with potassium 4.1, BUN 19, creatinine 1.09, glucose 124, calcium 9.8. Liver functions are within normal limits. Lipase was normal at 29. Urinalysis showed 40 ketones, otherwise within normal limits. Toxicology screen was positive for opiate. MICROBIOLOGY: [place] C. difficile toxin A and B is pending. Stool culture pending. RADIOLOGY: Abdominal x-ray in the Emergency Department, plain film, per radiologic interpretation showed an unremarkable bowel gas pattern. He also had a single view chest x-ray and per radiologic interpretation, no acute abnormalities were identified. He also had a CT of the abdomen with contrast and per radiologic interpretation, in absence of recent surgical history, findings were concerning for microperforation in the left lower quadrant with no evidence of abscess formation. Please see that final report for details. ASSESSMENT: 1. Chronic ulcerative colitis with acute flare-up with concerns for microperforation as noted on CT findings. 2. History of sigmoid colectomy with subsequent colostomy in the left abdomen with Bruno's pouch to help close off the rectal region with questionable microperforation within the left lower quadrant with no obvious abscess formation noted on most recent CT of the abdomen with contrast prior to admission. 3. Leukocytosis secondary to #1. 4. Nausea and vomiting secondary to #1. 5. Recent history of treatment of prostatitis with extended course of antibiotic therapy with both doxycycline and Bactrim within the last 90 days with the patient reporting some diarrhea noted within his colostomy. PLAN: After consultation with Dr. Gallardo, the patient will now be admitted to the Floor from the Emergency Room for initiation of treatment of the complications of ulcerative colitis with concern for microperforation. He will be made NPO tonight with consultation per Dr. Gallardo who will see him in the morning. He will be on fluids with D5 half normal saline with 20 of potassium that will run at 125 an hour tonight. He will be given pain management with morphine and antiemetics with Zofran as needed. We will plan to do stool studies to include stool culture, C. difficile toxin due to the fact that he has been on extended round of antibiotics to further rule out further etiology of his abdominal pain. He will be started on parenteral antibiotic to include Zosyn 3.375 q.6h. along with Flagyl 500 q.8h. He will be on bowel rest and have labs rechecked in the morning including CBC, BMP as well as repeat of abdominal x-ray, flat and upright. We will anticipate length of stay to be at least 2 to 3 days with conservative medical treatment. We will start him on DVT prophylaxis per protocol. He was given Protonix in the Emergency Department , 80 mg initially and this will be followed with 40 mg daily for gastric prophylaxis. We will resume his medications other than the Bactrim once they have been updated and verified in the electronic medical record. Until discharge, we will continue to monitor the patient closely and treat appropriately. #[id number] [facility]
[2017-06-16] MEDS ORDERED: IV SET AND CAP CHANGE INJ INJ SCH (22:00)
[2017-06-16] MEDS ORDERED: MORPHINE SULFATE INJ 10 MG/ML VIAL IV PRN (22:02)
[2017-06-16] MEDS ORDERED: ONDANSETRON INJ 4 MG/2 ML VIAL IV PRN (22:03)
[2017-06-16] MEDS ORDERED: metroNIDAZOLE IV PREMIX 500MG 500 MG in PREMIX BAG 1 BAG IVPB SCH (22:30)
--- NOTE | 2017-06-16 23:13 | PCM.CORE ---
Physician DVT/VTE - Nurse DVT Assessment & Total Each Risk Factor Represents 3 Points: Medical PT with Hx of KS, CHF, Severe infection/sepsis Each Risk Factor is 1 Point: Hx of Inflammatory Bowel Disease, Obesity (BMI >25) , Serious Lung disease (pnemonia <1month, COPD, emphysema,etc) DVT Assessment Score: 6 - 5 or more Very High Risk Treatments: Early Ambulation *, Sequential Compression Device Pharmacological: Enoxaparin 40mg SQ Daily
[2017-06-16] MEDS ORDERED: metroNIDAZOLE IV PREMIX 500MG 100 ML IVPB ONE (23:39)
[2017-06-16] MEDS ORDERED: SODIUM CHL 0.9% 100ML MINI-BAG 100 ML IVPB ONE (23:40)
[2017-06-16] MEDS: KCL 20MEQ/D5 1/2NS 1,000 ML IVS PRN (23:54)
[2017-06-17] MEDS: PIPERACILLIN/TAZOBACTAM 3.375 GM in SODIUM CHLORIDE 0.9% 100ML 100 ML IVPB SCH ×4 (02:32→20:11)
[2017-06-17] MEDS ORDERED: metroNIDAZOLE IV PREMIX 500MG 500 MG in PREMIX BAG 1 BAG IVPB SCH (05:13)
[2017-06-17] MEDS: PANTOPRAZOLE SODIUM IV 40 MG VIAL IV SCH (06:32)
--- NOTE | 2017-06-17 07:02 | RAD ---
EXAM DESCRIPTION: Abdomen Flat Upright CLINICAL HISTORY: abdominal pain COMPARISON: 06/06/2017 FINDINGS: 2 views of the abdomen. No free intraperitoneal air. Moderate amount of stool in the colon. Excreted contrast visualized in the urinary bladder. Degenerative change of the spine. Visualized lung bases are clear. IMPRESSION: 1. Nonobstructive nonspecific bowel gas pattern. Electronically signed by: Frederick Sheppard 06/17/2017 7:01 AM CDT
[2017-06-17] MEDS ORDERED: PIPERACILLIN/TAZOBACTAM 3.375 GM VIAL IVPB ONE ×4 (08:01→23:41)
[2017-06-17] MEDS ORDERED: SODIUM CHLORIDE 0.9% 100ML 100 ML IVPB ONE ×4 (08:02→23:41)
[2017-06-17] MEDS ORDERED: metroNIDAZOLE IV PREMIX 500MG 100 ML IVPB ONE ×3 (09:05→23:40)
[2017-06-17] MEDS: BIFIDOBACTERIUM INFANTIS 4 MG CAP PO SCH ×2 (09:30→20:11)
[2017-06-17] MEDS: metroNIDAZOLE IV PREMIX 500MG 500 MG in PREMIX BAG 1 BAG IVPB SCH ×2 (09:31→16:40)
[2017-06-17] MEDS ORDERED: ENOXAPARIN SODIUM 40 MG/0.4 ML SYG SUBCU SCH (11:00)
[2017-06-17] MEDS ORDERED: MAGNESIUM HYDROXIDE 30 ML UD PO ONE ×2 (11:24→16:13)
[2017-06-17] MEDS: KCL 20MEQ/D5 1/2NS 1,000 ML IVS PRN (13:07)
--- NOTE | 2017-06-17 14:17 | PN ---
SUPERVISING PHYSICIAN: Marty Gallagher MD DATE: 06/17/17 SUBJECTIVE: The patient is sitting up in bed. He has just finished his clear liquid lunch. He tolerated it well. He has not complaints of abdominal pain, chest pain or shortness of breath. Actually, he is very pleased because he is not hurting like he was yesterday. OBJECTIVE: VITAL SIGNS: T-max 24 hours is 99. Pulse rate 57 but has dropped as low as 45. Blood pressure is 95/58. Respiratory rate is 20. 02 saturation 96% on room air. CHEST: Clear to auscultation bilaterally. CARDIAC: Regular rhythm, bradycardic to regular rate. GI: Basically soft but he does have some very diffuse mild tenderness. There is no rebound tenderness or guarding. Bowel sounds are positive. It is nondistended. He has a large ventral hernia and has a colostomy to his left lower abdomen. EXTREMITIES: No cyanosis, clubbing, or edema. NEUROLOGIC: He is awake, alert and oriented x 3. LABORATORY: WBC has normalized to 8.5 with hemoglobin of 13.7 and hematocrit 39.7. Chemistries are basically within normal limits with the exception of his serum osmolality is 270.7 with a random glucose of 107 and serum total protein is 6.2. Stool culture is pending. C-Diff is negative for C-Diff, CDH antigen and negative for C-Diff toxin A and B. Abdominal x-ray per radiology interpretation shows nonobstructive nonspecific bowel gas pattern. All other labs and films have been reviewed via the EMR. ASSESSMENT: 1. Chronic ulcerative colitis with acute flare-up with concerns for microperforation as noted on CT findings. 2. History of sigmoid colectomy with subsequent colostomy in the left abdomen with Bruno's pouch to help close off the rectal region with questionable microperforation within the left lower quadrant with no obvious abscess formation noted on most recent CT of the abdomen with contrast prior to admission. 3. Leukocytosis that has improved. . 4. Nausea and vomiting secondary to #1 that has mostly improved. 5. Recent history of prostatitis with extended course of antibiotic therapy with both doxycycline and Bactrim within the last 90 days and patient reporting some diarrhea noted with his colostomy. PLAN: We will continue present supportive care. I have discussed his case with Dr. Gallardo, general surgeon. He is no longer having abdominal pain as severe as yesterday. We will advance his diet to clear liquids at least for 24 hours. He will continue on his IV fluids and I will repeat his lab and abdominal x-ray in the morning. He is presently on Zosyn and Flagyl IV therapy. I have also started Align twice a day. Will defer any other abdominal issues to Dr. Gallardo. I recommended good pulmonary hygiene and we will continue to monitor the patient closely and followup as needed. Dr. Gallagher is the collaborating physician available for consultation. #[id number] [facility]
[2017-06-17] MEDS: ACETAMINOPHEN 325 MG TAB PO PRN (17:14)
--- NOTE | 2017-06-17 17:22 | CONS ---
DATE OF CONSULTATION: 06/17/17 REFERRING PHYSICIAN: Hospitalist Service HISTORY OF PRESENT ILLNESS: The patient is a 66 year-old male who was admitted through the Emergency Room with the acute onset of nausea and vomiting and followed by retching. He denies fever or chills. Complains of abdominal pain and fullness on the left side after all the vomiting. He has a recent history of being treated for prostatitis with a 21 day course of Bactrim. He has a history of ulcerative colitis which was diagnosed in the year 1999. In 2009, he underwent colectomy with colostomy secondary to a perforation. 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 PAST MEDICAL HISTORY: 1. Migraine headaches. 2. As noted, he has been treated for prostatitis and epididymitis. PAST SURGICAL HISTORY: 1. Colectomy. 2. Stricture revision in 2009. 3. Colonoscopy last year. CURRENT MEDICATIONS: 1. Lialda. 2. Bactrim which he is finishing currently. ALLERGIES: NO KNOWN DRUG ALLERGIES. FAMILY HISTORY: Positive for alcohol abuse. SOCIAL HISTORY: The patient lives in [place]. He is . Drinks alcohol rarely. He quit smoking in the 80s. Had no history of drug use. He works as a welder first class and experimental mechanic. REVIEW OF SYSTEMS: He denies recent blood per rectum or melenic stools. No other change in his bowel habits. No chronic cough or shortness of breath and no weight loss. He has recently been treated as noted for the prostatitis and epididymitis. PHYSICAL EXAMINATION: VITAL SIGNS: He is afebrile and normotensive. Pulse is in the 60s. GENERAL: The patient is awake, alert and cooperative, and in no acute distress currently. HEENT: Reveals the sclera to be nonicteric. Mucous membranes are moist. NECK: Without adenopathy. ABDOMEN: Soft. There is no significant tenderness. There is fullness involving the ostomy site which the patient states may be somewhat larger than normal. There is no guarding. No referred tenderness. Bowel sounds are active. RECTAL: Examination is deferred. EXTREMITIES: Without clubbing, cyanosis or edema. LABORATORY: Last night in the emergency room he had a white count of 14,000, today it is down to 8,500 with 71% neutrophils, hemoglobin 13.7 and 248,000 platelets. RADIOLOGY: CT scan last night questioned some free air in the area of the sigmoid colon which should have been surgically absent if he had a Bruno's procedure for perforated sigmoid colon. IMPRESSION: 1. Rule out microperforation secondary to ulcerative colitis. PLAN: Continue the IV antibiotic for another 24 hours. Will give the patient clear liquids and give Milk of Magnesia for moderate amount of stool noted in the right and transverse colon. #[id number] [facility]
[2017-06-18] MEDS: metroNIDAZOLE IV PREMIX 500MG 500 MG in PREMIX BAG 1 BAG IVPB SCH ×2 (01:31→09:38)
[2017-06-18] MEDS: PIPERACILLIN/TAZOBACTAM 3.375 GM in SODIUM CHLORIDE 0.9% 100ML 100 ML IVPB SCH ×2 (02:13→08:09)
[2017-06-18] MEDS: SODIUM CHLORIDE 0.9% (FLUSH) 10 ML SYG IV PRN ×2 (02:14→06:17)
[2017-06-18] MEDS: KCL 20MEQ/D5 1/2NS 1,000 ML IVS PRN (02:33)
[2017-06-18] MEDS: ACETAMINOPHEN 325 MG TAB PO PRN (03:35)
[2017-06-18] MEDS: PANTOPRAZOLE SODIUM IV 40 MG VIAL IV SCH (06:10)
--- NOTE | 2017-06-18 07:01 | RAD ---
EXAM DESCRIPTION: Abdomen Flat Upright CLINICAL HISTORY: abd pain COMPARISON: 06/17/2016 FINDINGS: Air-filled loops of large and small bowel within the abdomen. No definite free intraperitoneal air. Degenerative change of the spine. Postoperative change in the left lower abdomen. IMPRESSION: Nonobstructive bowel gas pattern. Electronically signed by: Frederick Sheppard 06/18/2017 6:59 AM CDT
[2017-06-18] MEDS ORDERED: PIPERACILLIN/TAZOBACTAM 3.375 GM VIAL IVPB ONE (07:47)
[2017-06-18] MEDS ORDERED: ENOXAPARIN SODIUM 40 MG/0.4 ML SYG SUBCU ONE (07:47)
[2017-06-18] MEDS ORDERED: SODIUM CHLORIDE 0.9% 100ML 100 ML IVPB ONE (07:47)
[2017-06-18] MEDS: BIFIDOBACTERIUM INFANTIS 4 MG CAP PO SCH (08:09)
[2017-06-18] MEDS ORDERED: metroNIDAZOLE IV PREMIX 500MG 100 ML IVPB ONE (08:56)
[2017-06-18] MEDS ORDERED: ENOXAPARIN SODIUM 40 MG/0.4 ML SYG SUBCU SCH (09:00)
[2017-06-18 10:29] VITALS: BP 103/72; TEMP 97.9; O2SAT 98
--- NOTE | 2017-06-18 13:31 | DS ---
SUPERVISING PHYSICIAN: Marty Gallagher MD DISCHARGE DIAGNOSIS: 1. Chronic ulcerative colitis with acute flare-up with concerns for microperforation as noted on CT findings. 2. History of sigmoid colectomy with subsequent colostomy in the left abdomen with Bruno's pouch to help close off the rectal region with questionable microperforation within the left lower quadrant with no obvious abscess formation noted on most recent CT of the abdomen with contrast prior to admission. 3. Leukocytosis, improved. . 4. Nausea and vomiting secondary to #1, improved. 5. Recent history of prostatitis with extended course of antibiotic therapy with both doxycycline and Bactrim within the last 90 days and patient reporting some diarrhea noted with his colostomy. HISTORY OF PRESENT ILLNESS: This is a 66-year-old male patient with a history of ulcerative colitis with a sigmoid colectomy and a Bruno's pouch for spontaneous perforation of the sigmoid colon that was performed in 2009. He was brought to the Emergency Room by his after he had multiple episodes of nausea and vomiting and he started having some loose bowel movements through his colostomy and some abdominal cramping and pain that had become quite consistent. He also has a recent history of being treated for prostatitis and was almost finished a 21 day course of Bactrim. His primary care provider is Dr. Smith. On the date of admission in the Emergency Room, laboratory studies showed white blood cell count elevated to 14,000 with a left shift noted. Chemistries showed normal electrolytes and renal function as well as pancreatic enzymes. Urinalysis showed he had 40 of ketones, otherwise was within normal limits. His initial abdominal x-ray in the Emergency Department was noted to have an unremarkable gas pattern. This was followed up with an abdominopelvic CT with contrast and per radiologic interpretation, showed findings concerning for microperforation in the left lower quadrant, but no evidence of abscess formation. Dr. Gallardo was consulted and he was placed on bowel rest and then a clear liquid diet. He was given IV fluids. He was also started on Zosyn and Flagyl. He tolerated his clear liquids without any issues. WBCs came down to 8700 and hemoglobin and hematocrit were stable at 14 and 40.8. Neutrophils were 77.5%. Electrolytes were basically within normal limits. At this point, [facility]. DISCHARGE PLAN: The patient will be discharged home in stable condition. He will continue on 7 additional days of Augmentin as well as 7 days of Flagyl. He has 2 days left of Bactrim at home for his prostatitis and he can finish those. He has an appointment with Dr. Smith on 06/24/17 at 8 AM for followup. He can followup with Dr. Gallardo as needed. He is to start a bland diet and advance it as tolerated. I have also encouraged him to continue with Align twice a day due to the extensive length of time he has been on antibiotics. He is to return to see Dr. Smith, followup Dr. Gallardo, and come back to the hospital for any problems or complications. DISCHARGE MEDICATIONS: 1. Mesalamine. 2. Bactrim. 3. Augmentin. 4. Align. 5. Flagyl. Dr. Gallagher is the collaborating physician and available for consultation. #[id number] [facility]
== END 2017-06-18 12:40 | disposition home or self-care (01) | DRG 385 ==
LOC: ER 15:53 → MS 21:44 → OBSVTOIN 21:44
PROVIDERS: ADMIT Nurse Practitioner Family; ATTEND Nurse Practitioner Acute Care
DX: K51.518 Left sided colitis with other complication (principal); K63.1 Perforation of intestine (nontraumatic); Z93.3 Colostomy status; Z87.891 Personal history of nicotine dependence

== ENCOUNTER 2017-08-30 07:25 | Emergency (ER) | payer BC ==
[2017-08-30] MEDS ORDERED: LACTATED RINGERS 1,000 ML IVS ONE (07:44)
[2017-08-30] MEDS ORDERED: ONDANSETRON INJ 4 MG/2 ML VIAL IV ONE (07:49)
--- NOTE | 2017-08-30 07:50 | ED.PDOC ---
History of Present Illness - General Chief Complaint: Abdominal Pain Stated Complaint: abd pain/n/v Time Seen by Provider: 08/30/17 07:43 Information Source: patient, RN notes reviewed, Vital Signs reviewed, family Additional Information: No BM for about 24 hrs. Normally has about 5 BMs/day. Pt started having N/V and distention proximal to colostomy bag since yesterday around 0900. Patient recently admitted Jun 03 for 4 days with some similar symptoms - was treated with MiraLax and antibiotics at that time. Last colonoscopy about 2 years ago performed by [employer] in [place] - Dr. Watkins. - History of Present Illness Abdominal Pain Onset Location: LLQ Quality: cramping Timing/Duration: 24 hours Improving Factors: nothing Associated Symptoms: fever/chills, nausea/vomiting, swelling/mass in abdomen - proximal to colostomy bag Review of Systems - Review of Systems Constitutional: States: chills - before nausea EENTM: States: no symptoms reported Respiratory: States: no symptoms reported Cardiology: States: no symptoms reported Gastrointestinal/Abdominal: States: see HPI, abdominal pain, constipation - no BM x 1 day, nausea, vomiting Genitourinary: States: no symptoms reported Musculoskeletal: States: no symptoms reported Skin: States: no symptoms reported Neurological: States: headache - for several days Endocrine: States: no symptoms reported Hematologic/Lymphatic: States: no symptoms reported Past Medical History (General) - Patient Medical History Hx Seizures: No Hx Stroke: No Hx Asthma: No Hx of COPD: No Hx Congestive Heart Failure: No Hx Pacemaker: No Hx Hypertension: No Hx Diabetes: No Hx Cancer: No Hx Hepatitis C: No Hx MRSA: No Hx Other PMH: Yes - IBD (UC), h/o perforation Surgical History: colectomy - performed in [place] ~2007 - Vaccination History Hx Tetanus, Diphtheria Vaccination: No Hx Influenza Vaccination: No Hx Pneumococcal Vaccination: No Immunizations Up to Date: No - Social History Hx Tobacco Use: Yes - Quit 1998 Hx Alcohol Use: Yes - occ Hx Substance Use: No Hx Depression: No Hx Physical Abuse: No Hx Emotional Abuse: No Family Medical History - Family History Father Family History: No Known Living Status: Hx Family Asthma: No Hx Family Congestive Heart Failure: No Hx Family Hypertension: No Hx Family Stroke: No Hx Cardiac Disease: No Hx Family Diabetes: No Hx Family Cancer: No Hx Family;Other: Father's was unknown, possibly from ETOH. Mother Family History: No Known Living Status: Hx Family Asthma: No Hx Family Congestive Heart Failure: No Hx Family Hypertension: No Hx Family Stroke: No Hx Cardiac Disease: No Hx Family Diabetes: No Hx Family Cancer: No Hx Family;Other: Cause of unknown. Physical Exam - Physical Exam General Appearance: Ill Appearing, Restless - due to abdominal cramping, Well Groomed, Well Nourished Eyes, Ears, Nose, Throat Exam: PERRL/EOMI, normal ENT inspection, pharynx normal Neck: non-tender, full range of motion, supple, normal inspection Respiratory: chest non-tender, lungs clear, normal breath sounds, no respiratory distress, no accessory muscle use Cardiovascular/Chest: normal peripheral pulses, regular rate, rhythm, no edema Gastrointestinal/Abdominal: tenderness - proximal to colostomy with a 10 cm bulge, mass - proximal to colostomy Extremity: normal range of motion, non-tender Neurologic: streets and buildings decorator II-XII nml as tested, no motor/sensory deficits, alert, normal mood/affect, oriented x 3 Skin Exam: normal color Lymphatic: no adenopathy Progress - Progress Progress: 08/30/17 08:01 DDx: Obstruction, Perforation, UC flare up, Constipation, pending Perforation Will obtain imaging and labs and consider surgical and/or medical treatment based on findings. Pt may need to be started on Abx and steroids given h/o UC and perforation in the past as well as soft vital signs compared to baseline. Will start with Zofran and 1 Liter LR for now. CT Abd/Pelvis with Contrast: High-grade mechanical closed loop type small bowel obstruction from long segment obstructed loop of distal small bowel in a left parastomal hernia. Consider surgical consultation. 08/30/17 09:22 @0840 - Case initially discussed with Dr. Gallardo who recommended I call him back after CT Abd/Pelvis report comes back. @0920 - Case discussed with Dr. Gallardo following CT report and Dr. Gallardo recommended patient go to [facility] given potential need for surgery today and patient potentially being too sick/at risk for complications that exceed [facility]'s capabilities. @0996 - General Surgeon c iron worker at [facility] (Dr. Gomez) stated patient should get an NG Tube and be transferred as a direct admit to Hospitalist service or ER to ER transfer. @9460 - Hospitalist Group at [facility] (Dr. Molina) stated Pt should be transferred ER to ER @0940 - [facility] ER Physician (Dr. Cooley) accepted transfer. - Results/Orders Results/Orders: 08/30/17 07:46 Hold Metformin x 48Hrs [id number] Laboratory Results - last 24 hr 08/30/17 08/30/17 08/30/17 07:55 07:55 07:55 WBC 20.1 H* RBC 6.32 H Hgb 18.5 H Hct 54.6 H MCV 86.4 MCH 29.2 MCHC 33.9 RDW 13.5 Plt Count 348 MPV 7.6 Absolute Neuts (auto) Not Reportable Absolute Lymphs (auto) Not Reportable Absolute Monos (auto) Not Reportable Absolute Eos (auto) Not Reportable Neutrophils % Not Reportable Neutrophils % (Manual) 89.0 Lymphocytes % Not Reportable Lymphocytes % (Manual) 6.0 Monocytes % Not Reportable Monocytes % (Manual) 1.0 Eosinophils % Not Reportable Basophils % Not Reportable Band Neutrophils 4.0 Platelet Estimate Normal Normal RBC Morphology Normal rbc morph Sodium 138 Potassium 3.9 Chloride 101 Carbon Dioxide 25 Anion Gap 15.9 BUN 15 Creatinine 0.99 BUN/Creatinine Ratio 15.2 Random Glucose 141 H Serum Osmolality 278.9 Lactic Acid 1.5 Calcium 10.3 H Total Bilirubin 1.4 H AST 22 ALT 26 Alkaline Phosphatase 75 C-Reactive Protein Serum Total Protein 8.8 H Albumin 4.7 Globulin 4.1 H Albumin/Globulin Ratio 1.1 08/30/17 07:55 WBC RBC Hgb Hct MCV MCH MCHC RDW Plt Count MPV Absolute Neuts (auto) Absolute Lymphs (auto) Absolute Monos (auto) Absolute Eos (auto) Neutrophils % Neutrophils % (Manual) Lymphocytes % Lymphocytes % (Manual) Monocytes % Monocytes % (Manual) Eosinophils % Basophils % Band Neutrophils Platelet Estimate Normal RBC Morphology Sodium Potassium Chloride Carbon Dioxide Anion Gap BUN Creatinine BUN/Creatinine Ratio Random Glucose Serum Osmolality Lactic Acid Calcium Total Bilirubin AST ALT Alkaline Phosphatase C-Reactive Protein 1.1 H Serum Total Protein Albumin Globulin Albumin/Globulin Ratio 08/30/17 08/30/17 07:40 08:19 Temperature 99.0 F 99.2 F Pulse Rate [ 92 H 56 L monitor] Respiratory 20 20 Rate Blood Pressure 96/67 161/80 [RA] O2 Sat by Pulse 95 96 Oximetry Departure - Departure Clinical Impression: Colostomy in place, Parastomal hernia with obstruction and without gangrene, Small bowel obstruction Abdominal pain Qualifiers: Abdominal location: left lower quadrant Qualified Code(s): R10.32 - Left lower quadrant pain Nausea & vomiting Qualifiers: Vomiting type: unspecified Vomiting Intractability: intractable Qualified Code( s): R11.2 - Nausea with vomiting, unspecified Constipation Qualifiers: Constipation type: unspecified constipation type Qualified Code(s): K59.00 - Constipation, unspecified Time of Disposition: 09:45 Disposition: Transfer to Hospital Condition: Fair Departure Forms: ED Discharge - Pt. Copy, Patient Portal Self Enrollment Referrals: Efraín Smith III, MD [Primary Care Provider] - 1-2 Weeks Home Medications: Ambulatory Orders Mesalamine [Lialda] 1.2 gm PO BID 05/07/17 Transfer to Outside Facility - Transfer Information Accepting Provider:: Dr. Cooley Accepting Facility: [place] [address] Reason for Transfer: specialized care not available - caring for patient with parastomal hernia and obstruction in hernia.
[2017-08-30] MEDS ORDERED: POLYETHYLENE GLYCOL 3350 17 GM PCKT PO ONE (08:09)
[2017-08-30] MEDS ORDERED: metroNIDAZOLE IV PREMIX 500MG 500 MG in PREMIX BAG 1 BAG IVPB ONE (08:09)
[2017-08-30] MEDS ORDERED: PIPERACILLIN/TAZOBACTAM 3.375 GM in SODIUM CHLORIDE 0.9% 100ML 100 ML IVPB ONE (08:09)
[2017-08-30] MEDS ORDERED: methylPREDNISolone SODIUM SUC 125 MG/2 ML VIAL IV ONE (08:14)
[2017-08-30 08:21] VITALS: O2SAT 96
[2017-08-30] MEDS ORDERED: fentaNYL CITRATE INJ 50 MCG/ML AMP IV ONE (08:21)
--- NOTE | 2017-08-30 08:42 | CT ---
Procedure: CT ABDOMEN PELVIS WITH IV CONTRAST Exam Date: 08/30/2017 7:45 AM [facility] [employer] Ordering Provider: Peter Calloway Clinical Indication: abdominal pain. h/o UC and perforation. Comparison: June 16, 2017 TECHNIQUE: The abdomen and pelvis were scanned utilizing a multidetector helical scanner from the diaphragm to the lesser trochanter . Low osmolar IV contrast was also given. Coronal and sagittal reformations were obtained. This exam was performed according to our departmental dose-optimization program which includes automated exposure control, adjustment of the mA and/or kV according to patient size and/or use of iterative reconstruction technique. DISCUSSION: LOWER THORAX: Mild bibasilar subsegmental atelectasis. HEPATOBILIARY: No focal hepatic lesions. No biliary ductal dilatation. SPLEEN: No splenomegaly. PANCREAS: No focal masses or ductal dilatation. ADRENALS: No adrenal nodules. KIDNEYS/URETERS: No hydronephrosis, stones, or solid mass lesions. PELVIC ORGANS/BLADDER: Borderline enlarged appearance of the prostate gland. Bladder is unremarkable.. PERITONEUM / RETROPERITONEUM: No free air or fluid. LYMPH NODES: No lymphadenopathy. VESSELS: Unremarkable. GI TRACT: Stomach is mildly distended with fluid. There is evidence of a large left parastomal hernia containing long segment of fluid-filled and dilated loop of small bowel. This segment of bowel appears to be obstructed and there is a closed loop type obstruction. The hernia neck measures approximately 4.2 cm. No evidence of pneumoperitoneum. No portal venous gas. No drainable fluid collection. BONES AND SOFT TISSUES: No acute abnormality. There is a small fat-containing right Midline hernia with hernia neck measuring 1.2 cm, series 2 image 49. There is evidence of diastases of the rectus abdominis muscles. IMPRESSION: High-grade mechanical closed loop type small bowel obstruction from long segment obstructed loop of distal small bowel in a left parastomal hernia. Consider surgical consultation. Borderline enlarged prostate gland. Correlate physical exam. Electronically signed by: Colten Beasley MD 08/30/2017 8:41 AM [facility] [employer]
[2017-08-30] MEDS ORDERED: PIPERACILLIN/TAZOBACTAM 3.375 GM VIAL IVPB ONE (08:50)
[2017-08-30] MEDS ORDERED: metroNIDAZOLE IV PREMIX 500MG 100 ML IVPB ONE (08:50)
[2017-08-30] MEDS ORDERED: SODIUM CHLORIDE 0.9% 100ML 100 ML IVPB ONE (08:50)
[2017-08-30] MEDS ORDERED: LIDOCAINE HCL 2% (MOUTH-THROAT) 15 ML UD ONE (09:31)
[2017-08-30 10:01] VITALS: BP 163/79; TEMP 98.6
== END 2017-08-30 10:00 | disposition short-term general hospital (02) ==
LOC: ER 07:25
DX: K43.3 Parastomal hernia with obstruction, without gangrene (principal); K59.00 Constipation, unspecified; R11.2 Nausea with vomiting, unspecified; Z93.3 Colostomy status; Z87.891 Personal history of nicotine dependence
CPT/HCPCS: 36415; 74177; 80053; 83605; 85025; 86140; J2405; J2543; J2930; J3010; J3490; J7050; J7120

== ENCOUNTER → 2017-12-23 | Outpatient (CLI) | payer BC | LOC: GMAL 11:02 | PROVIDERS: ATTEND Family Medicine | DX: Z00.00 Encounter for general adult medical examination without abnormal findings (principal) ==

== ENCOUNTER → 2017-12-23 | Outpatient (CLI) | payer BC | LOC: GMAL 16:42 | PROVIDERS: ATTEND Family Medicine | DX: R30.0 Dysuria (principal) ==

== ENCOUNTER → 2018-01-28 | Outpatient (CLI) | payer BC | LOC: LAB.NP 12:21 | PROVIDERS: ATTEND Family Medicine | DX: R19.7 Diarrhea, unspecified (principal) ==

== ENCOUNTER → 2018-12-23 | Outpatient (CLI) | payer MEDICARE | LOC: GMAL 10:42 | PROVIDERS: ATTEND Family Medicine | DX: Z12.5 Encounter for screening for malignant neoplasm of prostate (principal); D64.9 Anemia, unspecified | CPT/HCPCS: 82728; 83540; 83550; G0103 ==

== ENCOUNTER → 2019-01-20 | Outpatient (CLI) | payer MEDICARE | LOC: GMAL 10:30 | PROVIDERS: ATTEND Family Medicine | DX: D50.8 Other iron deficiency anemias (principal); R97.20 Elevated prostate specific antigen [PSA] ==

== ENCOUNTER → 2019-03-23 | Outpatient (CLI) | payer MEDICARE | LOC: GMAL 14:08 | PROVIDERS: ATTEND Family Medicine | DX: D50.8 Other iron deficiency anemias (principal); Z79.899 Other long term (current) drug therapy ==

== ENCOUNTER → 2019-04-01 | Outpatient (CLI) | payer MEDICARE ==
--- NOTE | 2019-04-01 09:15 | CT ---
EXAM DESCRIPTION: Abdoment/Pelvis w/o Contrast CLINICAL HISTORY: 68 years, Male, PARASTOMAL HERNIA COMPARISON: Previous study August 30, 2017 TECHNIQUE: CT of the abdomen and pelvis is performed according to our non contrast protocol. FINDINGS: The lung bases are clear. Heart size is normal. Liver, spleen, and pancreas are unremarkable. Calcified gallstone in the gallbladder without overdistention or other changes to suggest acute inflammation. This was present on the previous study. Adrenal glands appear normal. The right kidney is unremarkable. The left kidney is unremarkable. No renal stones or hydronephrosis. Small bowel loops appear normal in caliber with normal wall thickness. Large parastomal hernia is seen containing small bowel loops and colon which are nondilated arguing against obstruction. Previous study of August 30, 2017 showed bowel obstruction which has resolved. Right-sided ventral hernia contains omental fat above the level of the umbilicus. High density pills or pill fragments in the stomach and distal small bowel. There is no lymphadenopathy, inflammation, or free fluid observed. In the pelvis, the appendix is normal. No inflammation around the cecum or terminal ileum. No stones in the distal ureters or bladder. Rectal mucous fistula is collapsed with no wall thickening or mass. No free fluid or mass in the pelvis. Prostate is enlarged measuring 5.6 cm in transverse dimension. No inguinal or lower pelvic adenopathy. Coronal and sagittal reformatted images confirm the findings. IMPRESSION: Left lower quadrant colostomy with parastomal hernia containing nondilated small bowel loops. Right-sided ventral hernia containing omental fat. Gallstone without other changes to suggest acute cholecystitis. Enlarged prostate. This exam was performed according to our departmental dose-optimization program, which includes automated exposure control, adjustment of the mA and/or kV according to patient size and/or use of iterative reconstruction technique. Total DLP equals 772.92 mGycm. Electronically signed by: Amarjit Hill MD 04/01/2019 9:14 AM CDT
== END ==
LOC: CT 07:32
PROVIDERS: ATTEND Surgery
DX: K43.5 Parastomal hernia without obstruction or gangrene (principal); K43.9 Ventral hernia without obstruction or gangrene; N40.0 Benign prostatic hyperplasia without lower urinary tract symptoms; K80.20 Calculus of gallbladder without cholecystitis without obstruction; Z93.3 Colostomy status

== ENCOUNTER 2019-04-08 04:53 | Day surgery (SDC) | payer MEDICARE ==
[2019-04-08] MEDS ORDERED: DEXAMETHASONE INJ 10 MG/ML VIAL IV ONE (10:00)
[2019-04-08] MEDS ORDERED: GLYCOPYRROLATE 0.2 MG/ML VIAL IV ONE (10:00)
[2019-04-08] MEDS ORDERED: LIDOCAINE 1% 10 ML VIAL INJ ONE (10:00)
[2019-04-08] MEDS ORDERED: PROPOFOL 200 MG/20 ML VIAL IV ONE (10:00)
[2019-04-08] MEDS ORDERED: SODIUM CHL 0.9% 50ML MIN-BAG+ 50 ML IVPB ONE (11:15)
[2019-04-08] MEDS: LACTATED RINGERS 1,000 ML ONE (11:15)
[2019-04-08] MEDS ORDERED: MIDAZOLAM INJ 2 MG/2 ML VIAL ONE (11:53)
[2019-04-08] MEDS ORDERED: KETAMINE HCL 50 MG/ML SYG IV ONE (11:53)
[2019-04-08] MEDS: cefOXitin SODIUM 2 GM INJ IVPB ONE (11:58)
[2019-04-08] MEDS ORDERED: ROCURONIUM BROMIDE 10 MG/ML VIAL ONE (12:01)
[2019-04-08] MEDS: BUPIVACAINE 0.5% W/EPI 30 ML VIAL INJ ONE (12:20)
[2019-04-08] MEDS ORDERED: ELECTROLYTE-A 1,000 ML IVS ONE (13:14)
[2019-04-08] MEDS: ONDANSETRON INJ 4 MG/2 ML VIAL ONE (14:35)
[2019-04-08] MEDS: HYDROmorphone HCL INJ 2 MG/ML VIAL ONE ×2 (14:50→15:07)
--- NOTE | 2019-04-08 15:09 | OP ---
DATE OF PROCEDURE: 04/08/19 PREOPERATIVE DIAGNOSIS: 1. Colon stricture with impending obstruction. 2. Paracolostomy hernia, incarcerated. 3. Ventral incisional hernia, recurrent. POSTOPERATIVE DIAGNOSIS: 1. Colon stricture with impending obstruction. 2. Paracolostomy hernia, incarcerated. 3. Ventral incisional hernia, recurrent. PROCEDURE: 1. Revision of colostomy for stricture. 2. Repair of incarcerated, sounds like recurrent paracolostomy hernia with mesh. SURGEON: Marty Nathan MD. ANESTHESIA: General and local. FINDINGS: The stoma was less than a fingertip, possible a pencil to get in and chronically scarred. The hernia itself was not particularly large, however, there was a large amount of incarcerated omentum and mesentery through it associated with significant scar. This was taken down. The small fistulous tract inferior to the stomach lead to the subcutaneous tissue and possibly intramuscular. I did not see an attachment to the colon and no evidence on the CT scan that there is a pelvic process that I could see. The colon end was completely viable. INDICATION: The patient is a 68-year-old man with a history of ulcerative colitis with apparent rupture. He has a stoma. He has been followed by GI and recently they could not perform a colonoscopy through his stoma because of stricture. He has also had a very large parastomal hernia, getting larger, and he has a ventral hernia as well. He states there was a previous repair. It sounds like they went through the midline and used a tissue/mesh, likely internally per his history and then the hernia recurred again, parastomal and on the midline. I did not have the prior operative report for that, but at this point it did not matter. His stricture has been getting worse. He only has liquid stool, so he has an impending obstruction. We discussed repairing his most urgent condition, which is the stricture and impending obstruction with parastomal hernia repair at the same time. His ventral hernia is very high, subcostal and would require an extensive advanced hernia procedure, probably a TAR procedure, which combined with the parastomal hernia, the repositioning of the stoma, a clean contaminated case, I suggested we deal with the most urgent problem first and that is the impending obstruction. He agreed. The ventral hernia is not much symptomatic now, so that is the plan. DESCRIPTION OF PROCEDURE: He was brought to the Operative Suite in supine position. General anesthesia was induced. What was open of the stoma was closed with Prolene sutures and prepped and draped in sterile fashion. We used mariana to staple off the stoma. A curved incision was used and anticipate outside his stomal appliance towards the midline. The subcutaneous tissues were taken down until we got to the hernia sac. This was entered. I was able to reduce most of the bowel prior to incision. We found a lot of incarcerated omentum and some incarcerated mesentery, lots of scarring in his old sac. I did not see any mesh either synthetic or biologic throughout the case, so I guess it had been placed internally, if at all. The history was not exactly clear. A lot of the scarring in the hernia went around lateral to the lateral fixation of the colon. Once we freed up all the scars, excised the hernia sac, excised some of the omentum, there was minimal oozing that was controlled with stick-ties. I isolated the extraabdominal colon and then we used a STEPHANE to staple if off. This was done under the skin and then fashioned and did a little bit of undermining to prepare the fascia for the mesh. A 15 by 15 Prolene flat mesh was used. It was trimmed appropriately in a pants leg fashion and placed from medial to lateral around the stoma. We did close up the defect with interrupted 0 PDS sutures and all the defect really only took 3 fingers. It had a lot of stuff through it given how relatively small it was, but we used multiple interrupted 0 PDS sutures to close that defect, not tight enough to stricture the colon, but to close the defect well enough. The mesh was then placed on top. It was secured around all the edges and around the stoma with interrupted 3-0 Vicryl. The area had been irrigated extensively. There was no spillage. We changed gloves at this time just as a precaution when we put the mesh in. Once the mesh was lying nice and flat, a Mirza drain was placed. We closed some of the space with interrupted 3-0 Vicryl and then our incision, of course, we put that down to the mesh and then closed the wound in 2 layers as well as mariana for the skin. We then went to the old stoma site. I excised it as close to the mucosa as I could. We considered possibly moving the stoma a bit or using this site and it was still even after the distortion from the old hernia right over where the stoma was currently and repositioning it might cause some significant angulation. He is not a large man without a lot of redundancy, so to close this and reposition it did not seem prudent at this time. We used the same site. There is some scarring and inflammation around it, but this should heal now that he should have better control of his stoma output and less leakage. The end did not look completely viable, so we had plenty of length and cut off about 3 cm. The mucosa here appeared pink and nice. Interrupted 3-0 were used. We tried to yong it as much as we could, which was moderately successful and matured the stoma. It stool looked viable. There was no significant bleeding. The drain was placed to suction. Everything at this point looked well. The wound was dressed. The appliance was placed. He was awakened and taken to the Recovery Room in stable condition where he can be discharged. #[id number] [facility]
[2019-04-08] MEDS: diazePAM 5 MG TAB ONE (15:45)
[2019-04-08] MEDS: ACETAMINOPHEN W/COD #3 TAB 1 EA TAB ONE (17:00)
[2019-04-08 17:46] VITALS: BP 145/77; TEMP 98.8; O2SAT 98
== END 2019-04-08 17:20 | disposition home or self-care (01) ==
LOC: AMB 04:53
PROVIDERS: ATTEND Surgery
DX: K56.699 Other intestinal obstruction unspecified as to partial versus complete obstruction (principal); K43.3 Parastomal hernia with obstruction, without gangrene; K43.2 Incisional hernia without obstruction or gangrene; K51.90 Ulcerative colitis, unspecified, without complications; Z87.891 Personal history of nicotine dependence; Z79.899 Other long term (current) drug therapy
CPT/HCPCS: 00840; 36415; 44346; 49566; 49568; 80048; 85025; 88305; C1781; J0694; J1100; J1170; J2250; J2405; J3490; J7050; J7120

== ENCOUNTER → 2019-04-14 | Outpatient (CLI) | payer MEDICARE | LOC: GMAL 10:43 | PROVIDERS: ATTEND Family Medicine | DX: D50.8 Other iron deficiency anemias (principal) ==

== ENCOUNTER 2019-05-01 11:57 | Inpatient (IN) | payer MEDICARE ==
[2019-05-01] MEDS ORDERED: KETOROLAC TROMETHAMINE INJ 30 MG/ML VIAL IV ONE (12:24)
[2019-05-01] MEDS ORDERED: ONDANSETRON INJ 4 MG/2 ML VIAL IV ONE (12:24)
[2019-05-01] MEDS ORDERED: SODIUM CHLORIDE 0.9% 1000ML 1,000 ML IVS ONE (12:26)
--- NOTE | 2019-05-01 12:31 | ED.PDOC ---
History of Present Illness - General Chief Complaint: GI Problem Stated Complaint: abdominal pain Time Seen by Provider: 05/01/19 12:24 Information Source: patient, family Exam Limitations: no limitations - History of Present Illness Initial Comments: Pt presents with worsening pain for the last 2 days. Pt ran out of his Motrin 800 mg 2 days ago. His doctor has not refilled the rx. Pt denies vomiting or diarrhea. He is passing gas and filling his colostomy bag with brown stool. No change in consistency or quantity. Pt denies f/c. Pt denies any other symptoms. Abdominal Pain Onset Location: RLQ, LLQ, epigastric, periumbilical, generalized abdomen Pain Radiation: no radiation Quality: moderate, cramping, sharpness Timing/Duration: days - 2 Improving Factors: medication - ibuprofen 800 mg Worsening Factors: nothing Associated Symptoms: nausea/vomiting - pt with nausea, no vomiting Review of Systems - Review of Systems Constitutional: States: no symptoms reported, weakness. Denies: chills, fever EENTM: States: no symptoms reported Respiratory: States: no symptoms reported Cardiology: States: no symptoms reported. Denies: chest pain, palpitations Gastrointestinal/Abdominal: States: see HPI, abdominal pain, nausea. Denies: diarrhea, vomiting Genitourinary: States: no symptoms reported. Denies: frequency, hematuria, pain Musculoskeletal: States: no symptoms reported Skin: States: no symptoms reported Neurological: States: weakness. Denies: anxiety, numbness, tingling Endocrine: States: no symptoms reported Hematologic/Lymphatic: States: no symptoms reported All other Systems: Reviewed and Negative Past Medical History (General) - Patient Medical History Hx Seizures: No Hx Stroke: No Hx Asthma: No Hx of COPD: No Hx Congestive Heart Failure: No Hx Pacemaker: No Hx Hypertension: No Hx Diabetes: No Hx Cancer: No Hx Hepatitis C: No Hx MRSA: No Surgical History: colectomy, other - colitis - Vaccination History Hx Tetanus, Diphtheria Vaccination: No Hx Influenza Vaccination: No Hx Pneumococcal Vaccination: No - Social History Hx Tobacco Use: No Hx Alcohol Use: Yes - occ Hx Substance Use: No Hx Depression: No Hx Physical Abuse: No Hx Emotional Abuse: No Family Medical History - Family History Father Family History: No Known Living Status: Hx Family Asthma: No Hx Family Congestive Heart Failure: No Hx Family Hypertension: No Hx Family Stroke: No Hx Cardiac Disease: No Hx Family Diabetes: No Hx Family Cancer: No Hx Family;Other: Father's was unknown, possibly from ETOH. Mother Family History: No Known Living Status: Hx Family Asthma: No Hx Family Congestive Heart Failure: No Hx Family Hypertension: No Hx Family Stroke: No Hx Cardiac Disease: No Hx Family Diabetes: No Hx Family Cancer: No Hx Family;Other: Cause of unknown. Physical Exam - Physical Exam General Appearance: Alert, Anxious, Well Developed, Well Groomed, Well Hydrated, Well Nourished Eyes, Ears, Nose, Throat Exam: PERRL/EOMI, normal ENT inspection Neck: non-tender, full range of motion, supple, normal inspection Respiratory: chest non-tender, lungs clear, normal breath sounds, no respiratory distress, no accessory muscle use Cardiovascular/Chest: normal peripheral pulses, regular rate, rhythm, no murmur Peripheral Pulses: No deficit Gastrointestinal/Abdominal: soft, abnormal bowel sounds - diminished, tenderness - generalized lower abdomen, hernia - ventral hernia, other - colostomy in place Extremity: normal range of motion, non-tender, normal inspection Neurologic: programming internship II-XII nml as tested, no motor/sensory deficits, alert, normal mood/affect, oriented x 3 Skin Exam: normal color, warm/dry Lymphatic: no adenopathy Progress - Progress Progress: 05/01/19 15:37 Pt d/w Dr. Roper, General Surgery, asks pt to be admitted to Medicine service a nd he will consult. Pt d/w Candie Trinidad and she accepts pt for admission. Mohit Cedeño M.D. #[id number] - Results/Orders Results/Orders: 05/01/19 12:24 IV Care:Saline Lock per Protoc QSHIFT Sodium Chloride 0.9% (Flush) [Saline Flush Syringe] 10 ml IV PRN PRN 05/01/19 12:25 Hold Metformin x 48Hrs [id number] Laboratory Results - last 24 hr 05/01/19 05/01/19 05/01/19 12:39 12:39 12:39 WBC 13.7 H RBC 5.07 Hgb 13.6 L Hct 40.7 L MCV 80.2 MCH 26.8 L MCHC 33.5 RDW 20.4 H Plt Count 367 MPV 7.8 Absolute Neuts (auto) 11.40 H Absolute Lymphs (auto) 0.90 L Absolute Monos (auto) 1.20 H Absolute Eos (auto) 0.10 Absolute Basos (auto) 0.10 Neutrophils % 83.4 H Lymphocytes % 6.5 L Monocytes % 8.6 Eosinophils % 0.8 L Basophils % 0.7 Sodium 136 Potassium 3.7 Chloride 101 Carbon Dioxide 20 L Anion Gap 18.7 H BUN 16 Creatinine 0.87 BUN/Creatinine Ratio 18.4 Random Glucose 100 Serum Osmolality 273.2 L Calcium 9.2 Total Bilirubin 0.8 Direct Bilirubin 0.2 Indirect Bilirubin 0.6 AST 51 H ALT 77 H Alkaline Phosphatase 160 H Serum Total Protein 7.6 Albumin 3.7 Lipase 24 Urine Color Yellow Urine Appearance Clear Urine pH 5.0 Ur Specific [place] 1.015 Urine Protein Negative Urine Glucose (UA) Negative Urine Ketones 15 H Urine Blood Negative Urine Nitrite Negative Urine Bilirubin Negative Urine Urobilinogen 0.2 Ur Leukocyte Esterase Negative Urine RBC 0 Urine WBC 0 Ur Epithelial Cells 0 Urine Bacteria 0 Pt noted to have a new subcutaneous loculated fluid collect that is 3.8 cm x 2.6 cm x 5.8 cm associated lateral and inferior to the colostomy. Pt still wit Rectus diastases and a stable right paramedian ventral hernia containing fat. Departure - Departure Clinical Impression: Neutrophilic leukocytosis Subcutaneous abscess Qualifiers: Site of cutaneous abscess: other site Qualified Code(s): L02.818 - Cutaneous abscess of other sites Abdominal pain Qualifiers: Abdominal location: left lower quadrant Qualified Code(s): R10.32 - Left lower quadrant pain Disposition: Admit Patient Condition: Good Referrals: Efraín Smith III, MD [Primary Care Provider] - 1-2 Weeks Home Medications: Ambulatory Orders Mesalamine [Lialda] 1.2 gm PO BID 05/07/17 Decision To Admit - Decistion To Admit Decision to Admit Reason: Admit from ER Decision to Admit Date: 05/01/19 Decision to Admit Time: 15:35
[2019-05-01] MEDS: SODIUM CHLORIDE 0.9% (FLUSH) 10 ML SYG IV PRN ×2 (12:41→19:19)
--- NOTE | 2019-05-01 13:59 | CT ---
EXAM: CT Abdomen and Pelvis With Intravenous Contrast CLINICAL HISTORY: Generalized abdominal pain. Hx of ext abd surgery TECHNIQUE: Axial computed tomography images of the abdomen and pelvis with intravenous contrast. Sagittal and coronal reformatted images were created and reviewed. This CT exam was performed using one or more of the following dose reduction techniques: automated exposure control, adjustment of the mA and/or kV according to patient size, and/or use of iterative reconstruction technique. COMPARISON: 04/01/2019. FINDINGS: Limitations: None. Lung bases: Unremarkable. No mass. No consolidation. ABDOMEN: Liver: Unremarkable. No mass. Gallbladder and bile ducts: Small gallstone present. No ductal dilation. Pancreas: Unremarkable. No mass. No ductal dilation. Spleen: Unremarkable. No splenomegaly. Adrenals: Unremarkable. No mass. Kidneys and ureters: Unremarkable. No solid mass. No hydronephrosis. Stomach and bowel: Unremarkable. No obstruction. No mucosal thickening. PELVIS: Appendix: No findings to suggest acute appendicitis. Bladder: Unremarkable. No mass. Reproductive: Unremarkable as visualized. ABDOMEN and PELVIS: Intraperitoneal space: Unremarkable. No free air. No significant fluid collection. Bones/joints: No acute fracture. No dislocation. Soft tissues: Rectus diathesis present. Right anterior paramedian fascial defect containing fat unchanged. There is a left lower quadrant colostomy. There is a parastomal hernia containing fat. There is a new subcutaneous loculated fluid collection measuring 3.8 x 2.6 x 5.8 cm lateral and inferior to the colostomy. The collection tapers cranial to the colostomy. Vasculature: Unremarkable. No abdominal aortic aneurysm. Lymph nodes: Unremarkable. No enlarged lymph nodes. IMPRESSION: 1. There is a new subcutaneous, loculated fluid collection associated with the left colostomy most consistent with abscess. 2. Cholelithiasis. 3. Rectus diastases with stable right paramedian ventral hernia containing fat. Electronically signed by: Mago Ramos MD 05/01/2019 1:57 PM CDT
[2019-05-01] MEDS ORDERED: PIPERACILLIN/TAZOBACTAM 4.5 GM in SODIUM CHLORIDE 0.9% 100ML 100 ML IVPB ONE (15:59)
--- NOTE | 2019-05-01 16:06 | HP ---
SUPERVISING PHYSICIAN: Marty Gallagher M.D. CHIEF COMPLAINT: Abdominal pain and fever. HISTORY OF PRESENT ILLNESS: This is a 68 year-old male patient who has a history of ulcerative colitis with a left lower quadrant colostomy. On 04/08/19, he had a parastomal hernia repair per Dr. Marty Nathan, general surgeon. He did fine postoperatively and approximately 1-1/2 to 2 weeks ago he started having malaise and low-grade fever. He felt like the area around the stoma was somewhat hard and he had chills and just felt like had the flu. He got to the point today that he came to the Emergency Room. His initial vital signs showed a temperature of 99.5 with a heart rate of 83, blood pressure 163/79, respiratory rate 20, O2 sat 98% on room air. Lab studies showed a WBC of 13,700 with hemoglobin 13.6, hemoglobin 40.7. He had a left shift on his differential. Electrolytes were basically within normal limits. AST was elevated at 51, ALT 77, alkaline phosphatase 160. Urinalysis was basically within normal limits. The E. R. physician called Dr. Nathan and he felt that the patient could be admitted to the hospital and put on IV antibiotics, and he would see the patient tomorrow. The patient was given some fluids and started on some Zosyn. He also got some Toradol and some Zofran. I was called for hospital admission. PAST MEDICAL HISTORY: 1. Ulcerative colitis with a sigmoid colectomy and Bruno's pouch. 2. History of spontaneously perforated sigmoid colon that resulted in a colectomy with a colostomy. 3. History of migraine and tension headaches. 4. History of chronic prostatitis and epididymitis. PAST SURGICAL HISTORY: 1. Sigmoid colectomy with Bruno's pouch for spontaneous perforation of the sigmoid in November of 2009. 2. Stricture revision from stomatitis in 2009. HOME MEDICATIONS: None. ALLERGIES: NO KNOWN DRUG ALLERGIES. FAMILY HISTORY: Noncontributory. SOCIAL HISTORY: He is retired. He lives in [place] and is . He has a past history of cigarette smoking but he quit in the . He drinks alcohol rarely. He denies any illicit drug use. Dr. Efraín Smith is his primary care physician. REVIEW OF SYSTEMS: Positive for subjective fever and chills. Negative for unintentional weight loss or gain. HEENT: Negative for ear pain, vision changes, sinus symptoms or sore throat. RESPIRATORY: Negative for coughing, wheezing or shortness of breath. CARDIAC: Negative for chest pain, palpitations or tachycardia. GASTROINTESTINAL: As per History of Present Illness. GENITOURINARY: Negative for hematuria, polyuria or dysuria. NEUROLOGIC: Positive for headache. Negative for dizziness or seizures. SKIN: As per History of Present Illness. PHYSICAL EXAMINATION: VITAL SIGNS: Temperature 99.2, heart rate 57, blood pressure 138/71, respiratory rate 18, O2 sat 98% on room air. GENERAL: This is a 68 year-old male patient who is lying in his hospital bed. He is in no acute distress. HEENT: Normocephalic and atraumatic. Pupils are equal and reactive. Oropharynx is clear. NECK: Supple without mass. RESPIRATORY: Essentially clear to auscultation bilaterally. CHEST: There is equal rise and fall of the chest with inspiration and expiration. CARDIOVASCULAR: Regular rate and rhythm. GASTROINTESTINAL: Abdomen is soft but he does have a colostomy to that left lower quadrant. There is dark brown stool in his colostomy pouch. Along the lateral portion of the stoma is an area that is somewhat hardened as well as warm. There is no fluctuance noticed. It is very mildly erythematous. EXTREMITIES: No clubbing, cyanosis or edema. NEUROLOGIC: He is awake, alert and oriented times three. Cranial nerves II-XII are grossly intact. LABORATORY: Labs are as per the History of Present Illness. CT of the abdomen and pelvis shows: 1. There is a new subcutaneous loculated fluid collection associated with the left colostomy most consistent with an abscess. 2. Cholelithiasis. 3. Rectus diastases with stable right paramedian ventral hernia containing fat. All other labs and films have been reviewed via the EMR. ASSESSMENT: 1. Abscess of newly repaired colostomy with admitting WBCs of 13,700, a low-grade temperature of 99.5 and a left shift on his differential. 2. History of ulcerative colitis with a sigmoid perforation resulting in Bruno's pouch with colectomy in 2009. 3. Elevated liver enzymes with no history of elevated liver function tests. PLAN: We will admit the patient to the hospital. I have consulted Dr. Nathan. He will have fluids overnight as well as starting him on his Zosyn. He has Lovenox for DVT prophylaxis and a PPI for ulcer prophylaxis. I will give him some Tramadol for pain as well as Restoril for sleep. I will give him 3 doses of Toradol as well. He got one in the E. R. I have ordered lab for in the morning. Will follow the patient and followup with Dr. Nathan's recommendations. Will continue to monitor closely and follow as needed. #[id number] MTDD
[2019-05-01] MEDS ORDERED: SODIUM CHLORIDE 0.9% 100ML 100 ML IVPB ONE ×3 (16:10→19:28)
[2019-05-01] MEDS ORDERED: PIPERACILLIN/TAZOBACTAM 2.25 GM VIAL IVPB ONE ×3 (16:10→19:28)
[2019-05-01] MEDS ORDERED: SODIUM CHLORIDE 0.9% (FLUSH) 10 ML SYG IV PRN (18:41)
[2019-05-01] MEDS ORDERED: KCL 20MEQ/0.45% NS 1,000 ML IVS ONE (18:41)
[2019-05-01] MEDS ORDERED: ONDANSETRON INJ 4 MG/2 ML VIAL IV PRN (18:41)
[2019-05-01] MEDS ORDERED: IV SET AND CAP CHANGE INJ INJ SCH (19:00)
[2019-05-01] MEDS: HYDROcodone 5MG/APAP 325MG 1 EA TAB PO PRN (19:19)
[2019-05-01] MEDS ORDERED: traMADol HCL 50 MG TAB PO PRN (20:06)
[2019-05-01] MEDS ORDERED: TEMAZEPAM 15 MG CAP PO PRN (20:06)
[2019-05-01] MEDS: ENOXAPARIN SODIUM 40 MG/0.4 ML SYG SUBCU SCH (20:55)
[2019-05-01] MEDS: KETOROLAC TROMETHAMINE INJ 30 MG/ML VIAL IV SCH (20:55)
[2019-05-01] MEDS: PIPERACILLIN/TAZOBACTAM 4.5 GM in SODIUM CHLORIDE 0.9% 100ML 100 ML IVPB SCH (21:47)
[2019-05-02] MEDS: KETOROLAC TROMETHAMINE INJ 30 MG/ML VIAL IV SCH ×2 (02:02→09:28)
[2019-05-02] MEDS: PIPERACILLIN/TAZOBACTAM 4.5 GM in SODIUM CHLORIDE 0.9% 100ML 100 ML IVPB SCH ×4 (03:50→21:53)
[2019-05-02] MEDS: PANTOPRAZOLE SODIUM IV 40 MG VIAL IV SCH (06:21)
[2019-05-02] MEDS: HYDROcodone 5MG/APAP 325MG 1 EA TAB PO PRN (06:24)
[2019-05-02] MEDS ORDERED: PIPERACILLIN/TAZOBACTAM 2.25 GM VIAL IVPB ONE ×4 (11:00→19:24)
[2019-05-02] MEDS ORDERED: SODIUM CHLORIDE 0.9% 100ML 100 ML IVPB ONE ×4 (11:00→19:24)
[2019-05-02] MEDS ORDERED: PEG-ELECTROLYTE 4,000 ML BTTL PO ONE (12:43)
[2019-05-02] MEDS ORDERED: MORPHINE SULFATE INJ 10 MG/ML VIAL ONE (16:14)
[2019-05-02] MEDS: MORPHINE SULFATE INJ 10 MG/ML VIAL IM PRN (16:17)
[2019-05-02] MEDS ORDERED: PROMETHAZINE HCL INJ 25 MG in SODIUM CHLORIDE 0.9% 50ML 50 ML IVPB PRN (17:35)
[2019-05-02] MEDS ORDERED: PROMETHAZINE HCL INJ 25 MG/ML VIAL ONE (17:37)
[2019-05-02] MEDS ORDERED: SODIUM CHLORIDE 0.9% 50ML 50 ML ONE (17:37)
--- NOTE | 2019-05-02 17:52 | PN ---
DATE: 05/02/19 SUPERVISING PHYSICIAN: Marty Gallagher M.D. SUBJECTIVE: The patient is lying in bed. He feels better today. He feels that the Tramadol has helped his pain. It significantly helps more than his Tylenol #3. He is seeing Dr. Nathan today and plans for surgery tomorrow. Otherwise he has no complaints of chest pain, shortness of breath, nausea or vomiting. OBJECTIVE: VITAL SIGNS: Temperature 98.5, heart rate 75, blood pressure 132/67, respiratory rate 18, O2 sat 95% on room air. RESPIRATORY: Essentially clear to auscultation bilaterally. CARDIAC: Regular rate and rhythm. GASTROINTESTINAL: Abdomen is soft, nondistended, mildly tender especially in the left lower quadrant and especially around the stoma. There has been some drainage from the lateral portion of the stoma. NEUROLOGIC: He is awake, alert and oriented times three. LABORATORY: WBCs have improved to 10,900 with hemoglobin 12.2, hematocrit 36.9. He has a normal differential. Chemistry is unremarkable. AST did drop to 39, ALT dropped to 63 and alkaline phosphatase dropped to 141. Wound culture is pending. All other labs and films have been reviewed via the EMR. ASSESSMENT: 1. Abscess of newly repaired colostomy with admitting WBCs of 13,700, a low-grade temperature of 99.5 and a left shift on his differential. 2. History of ulcerative colitis with a sigmoid perforation resulting in Bruno's pouch with colectomy in 2009. 3. Elevated liver enzymes with no history of elevated liver function tests. PLAN: We will continue present supportive care. Operative issues will be per Dr. Nathan. The patient will be NPO at midnight and have a sonogram of that left lower quadrant tomorrow prior to surgery. Dr. Nathan has talked to the patient about his surgery. Will continue on the Zosyn for now. I have rechecked his labs for in the morning. We will continue to follow the patient closely and treat as needed as well as following recommendations by Dr. Nathan, general surgeon. #[id number] MTDD
[2019-05-02] MEDS: SODIUM CHLORIDE 0.9% (FLUSH) 10 ML SYG IV SCH (20:31)
[2019-05-02] MEDS: ENOXAPARIN SODIUM 40 MG/0.4 ML SYG SUBCU SCH (20:31)
[2019-05-03] MEDS: PIPERACILLIN/TAZOBACTAM 4.5 GM in SODIUM CHLORIDE 0.9% 100ML 100 ML IVPB SCH ×3 (04:00→19:31)
[2019-05-03] MEDS: PANTOPRAZOLE SODIUM IV 40 MG VIAL IV SCH (06:10)
[2019-05-03] MEDS: MORPHINE SULFATE INJ 10 MG/ML VIAL IM PRN (08:05)
[2019-05-03] MEDS: SODIUM CHLORIDE 0.9% (FLUSH) 10 ML SYG IV SCH ×2 (09:06→21:22)
[2019-05-03] MEDS ORDERED: LIDOCAINE 1% 10 ML VIAL INJ ONE (10:00)
[2019-05-03] MEDS ORDERED: PROPOFOL 200 MG/20 ML VIAL IV ONE (10:00)
[2019-05-03] MEDS ORDERED: raNITIdine HCL INJ 25 MG/ML VIAL IV ONE (10:00)
[2019-05-03] MEDS ORDERED: DEXAMETHASONE INJ 10 MG/ML VIAL IV ONE (10:00)
--- NOTE | 2019-05-03 11:12 | US ---
EXAM DESCRIPTION: Soft Tissue,Abdomen: ULTRASOUND. CLINICAL HISTORY: abscess around LLQ stoma. Abnormal CT scan. COMPARISON: CT abdomen and pelvis with IV contrast 05/01/2019. TECHNIQUE: Transabdominal scanning: lizama-scale and Doppler modes. FINDINGS: Irregular fluid collection in the adipose tissue with internal echoes and minimal wall thickening left lower quadrant anterior abdominal wall abutting the colostomy. Approximate measurements are 5.1 x 6.7 x 1.1 cm. This is consistent with findings on the prior CT scan. No abnormal vascularity. IMPRESSION: Probable abscess left lower quadrant anterior adipose tissue around colostomy. Depth is 1.1 cm. Electronically signed by: Spencer Bundy MD 05/03/2019 11:10 AM CDT
[2019-05-03] MEDS ORDERED: SODIUM CHLORIDE 0.9% 100ML 100 ML IVPB ONE ×3 (11:20→21:48)
[2019-05-03] MEDS ORDERED: PIPERACILLIN/TAZOBACTAM 2.25 GM VIAL IVPB ONE ×3 (11:20→21:48)
[2019-05-03] MEDS ORDERED: fentaNYL CITRATE INJ 50 MCG/ML AMP ONE (14:18)
[2019-05-03] MEDS ORDERED: MIDAZOLAM INJ 2 MG/2 ML VIAL ONE (14:18)
[2019-05-03] MEDS ORDERED: ROCURONIUM BROMIDE 10 MG/ML VIAL ONE (14:19)
[2019-05-03] MEDS ORDERED: KETAMINE HCL 50 MG/ML SYG IV ONE (14:19)
[2019-05-03] MEDS ORDERED: ELECTROLYTE-A 1,000 ML IVS ONE (14:22)
[2019-05-03] MEDS ORDERED: SUGAMMADEX SODIUM 200 MG/2 ML VIAL IV ONE ×2 (15:25→15:56)
[2019-05-03] MEDS ORDERED: BUPIVACAINE 0.5% W/EPI 30 ML VIAL INJ ONE (15:49)
[2019-05-03] MEDS ORDERED: HYDROmorphone HCL INJ 2 MG/ML VIAL ONE (15:50)
--- NOTE | 2019-05-03 15:56 | OP ---
DATE OF PROCEDURE: 05/01/19 PREOPERATIVE DIAGNOSIS: 1. History of colon revision and paracolostomy hernia repair with possible wound infection. 2. History of ulcerative colitis with perforation. POSTOPERATIVE DIAGNOSIS: 1. History of colon revision and paracolostomy hernia repair with possible wound infection. 2. History of ulcerative colitis with perforation. 3. Anal stricture. PROCEDURE: 1. Colonoscopy via colostomy. 2. Attempted proctoscope below with anal stricture. 3. Intraoperative drainage of abdominal wound. 4. Anal biopsy. SURGEON: Marty Nathan MD. ANESTHESIA: General and local. FINDINGS: As described. CONDITION: Stable. PLAN: Admit. INDICATION: The patient had recently revised a stoma that had been strictured and unable to do appropriate endoscopy for apparently 2 years. He had a history of spontaneous perforation thought from colitis. He presented with increasing pain at the lower wound and a CT consistent with food collection and possible abscess. There was serosanguineous drainage and recommended drainage of this because there is mesh in there and we want to open drain it. There is no evidence of intraabdominal process. We do not have a significant rectal stump and we wanted to get him scoped as he had not been scoped in a couple of years. We are going to scope through the stoma as well as from below. PROCEDURE: The patient was brought to the Endoscopy Suite in supine position. General anesthesia was induced. We carefully inserted through the stoma which was now still widely patent and able to perform the colonoscopy without difficulty. Upon withdrawal, we took 2 biopsies randomly in the right colon and 2 from the descending colon medical detail representative. It did appear to have some erythema, some white, pale patchiness. No active colitis or ischemia, but there did appear to be some chronic colitis there. Through the rectum, digital rectal exam, we could not get through. It did not appear to be a previous APR, however, there was definite stricture and felt like sort of like an adhesive closure which I was able to get through a little bit, but I was not too aggressive. We tried to pass the scope and saw a tiny hole, but nothing we could pass the scope through, so either much disuse closure versus history of APR that has not completely healed versus malignancy. I do not have a history of APR on him, but I do not know exactly what had been done. I do know he has a rectum previous colonoscope indicating a 10 cm stump, although here we are not able to get through. He was then taken to the Operating Room for drainage of his wound. He was prepped and draped in sterile fashion. The small draining sinus, I extended that to the inferior portion of the incision and opened up. There was serosanguineous fluid coming out. This was cultured and irrigated. We could see the inferior portion of the mesh. There was no active purulence. This was packed with a gauze and then again tried to get through the rectum. There appeared to be external tissue, external hemorrhoid. The sphincter muscle was difficult to palpate, but it did not appear to be an APR. I did try to use the forceps to take some tissue. Possibly we could do an upper EGD scope that might get through this small hole, but we do not have that set up right now in this Operating Room. I will discuss with him and get his prior operative report and then try to put it all together. Definitely, we have to figure this out before we attempt a colostomy takedown and await colonoscope biopsies. #[id number] [facility]
[2019-05-03] MEDS ORDERED: LEVALBUTEROL NEBS 1.25 MG/3 ML VIAL NEB ONE (16:05)
[2019-05-03] MEDS: HYDROcodone 5MG/APAP 325MG 1 EA TAB PO PRN (19:30)
--- NOTE | 2019-05-03 20:26 | PN ---
DATE: 05/03/19 SUPERVISING PHYSICIAN: Roel Jackson M.D. SUBJECTIVE: The patient is still having some redness and soreness around the stoma. He has had no obvious fever. He has had no nausea or vomiting. OBJECTIVE: VITAL SIGNS: He remains afebrile with temperature 99.5, pulse 78, blood pressure 150/69, respirations 20, satting 96% on room air. Weight is 75.0 kg. GENERAL: The patient is resting comfortably. Appears to be in no acute distress. CHEST: Lungs are clear to auscultation. HEART: Regular rate and rhythm. ABDOMEN: Soft, nondistended with some mild tenderness noted over the left lower quadrant around the stoma which has some drainage on the lateral portion of the stoma and some erythema. The stoma is pink and appears to be healthy with liquid brown drainage in the colostomy bag. NEUROLOGIC: He is awake, alert and oriented times three. LABORATORY: White count is down to 7,700, hemoglobin 12.6, hematocrit 37.9, platelet count 337,000. Differential shows to be without a left shift today. Chemistries show normal electrolytes. Normal magnesium. RADIOLOGY: Soft tissue ultrasound around the stoma area per radiology interpretation shows probable abscess left lower quadrant, anterior adipose tissue around the colostomy. Depth 1.1 cm. ASSESSMENT: 1. Abdominal wall abscess around colostomy awaiting surgical consultation and intervention with the patient showing good response to antibiotics. 2. History of ulcerative colitis with a sigmoid perforation resulting in Bruno's pouch with colectomy in 2009. 3. Elevated liver enzymes with no history of elevated liver function tests. PLAN: Will continue current care plan with the patient being NPO awaiting Dr. Nathan to take the patient to surgery. Will continue with syn for antibiotic coverage. Will await Dr. Nathan's findings. Anticipate hopefully discharging within the next 2 to 3 days if not sooner. Until then will continue to monitor and treat as needed. #[id number] [facility]
[2019-05-03] MEDS: ENOXAPARIN SODIUM 40 MG/0.4 ML SYG SUBCU SCH (21:22)
[2019-05-03] MEDS: MESALAMINE 1.2 GM PO SCH (21:23)
[2019-05-04] MEDS: PIPERACILLIN/TAZOBACTAM 4.5 GM in SODIUM CHLORIDE 0.9% 100ML 100 ML IVPB SCH (03:37)
[2019-05-04] MEDS: PANTOPRAZOLE SODIUM IV 40 MG VIAL IV SCH (05:39)
[2019-05-04] MEDS: MESALAMINE 1.2 GM PO SCH (10:04)
[2019-05-04] MEDS: SODIUM CHLORIDE 0.9% (FLUSH) 10 ML SYG IV SCH (10:04)
[2019-05-04 10:09] VITALS: BP 129/66; TEMP 98.4; O2SAT 96
[2019-05-04] MEDS: HYDROcodone 5MG/APAP 325MG 1 EA TAB PO PRN (11:25)
--- NOTE | 2019-05-04 14:25 | DS ---
REASON FOR ADMISSION: 1. Post abdominal wound open drainage, packing. 2. Colitis post colonoscopy. HOSPITAL COURSE: The patient presented to the Emergency Department with evidence of wound infection and history of colitis. He had recently had his stoma revised from stricture and now came to undergo colonoscopy, so we decided to open his wound and perform a colonoscopy. Please see the Operative Report for complete details. The colonoscopy showed evidence of some chronic colitis without any bleeding. The wound was drained. It showed mostly serous fluid with no purulence. The inferior portion of the mesh was exposed and packed. It should granulate in. The scope through the anus revealed a narrowed, strictured anal canal. We tried to get through it, but the scope was too large. I am not sure why it is strictured and there was some bleeding trying to digitally get through it. Small amounts of tissue were done, unlikely an adequate biopsy to rule out malignancy. He also has a known prostate problem, possibly cancer. The pathology report is pending at this time. I understand it has been given to his primary care physician. He tolerated the procedure well. The wound has been packed. He has gotten some teaching with wound packing. Home health will see him at home, then his is willing to continue the packing. I will obtain the previous report on his lower colonoscopy rather and see if there was any evidence of this type of stricturing then and see him in followup for wound management and await the biopsy results. FINAL DIAGNOSIS: 1. Possible wound infection versus fluid collection. 2. Colitis. 3. Post open drainage and packing of wound. 4. Post colonoscopy. PROGNOSIS: Good. #[id number] MTDD
== END 2019-05-04 15:10 | disposition home health service (06) | DRG 394 ==
LOC: ER 11:57 → MS 16:04 → OBSVTOIN 16:04
PROVIDERS: ADMIT Nurse Practitioner Acute Care; ATTEND Surgery
PROC: 0DBM8ZX Excision of Descending Colon, Via Natural or Artificial Opening Endoscopic, Diagnostic (ICD-10-PCS; principal; 2019-05-01)
PROC: 0DBQ8ZX Excision of Anus, Via Natural or Artificial Opening Endoscopic, Diagnostic (ICD-10-PCS; 2019-05-01)
PROC: 0DBF8ZX Excision of Right Large Intestine, Via Natural or Artificial Opening Endoscopic, Diagnostic (ICD-10-PCS; 2019-05-01)
PROC: BW211ZZ Computerized Tomography (CT Scan) of Abdomen and Pelvis using Low Osmolar Contrast (ICD-10-PCS; 2019-05-01)
DX: K94.02 Colostomy infection (principal); L02.211 Cutaneous abscess of abdominal wall; K52.9 Noninfective gastroenteritis and colitis, unspecified; Z90.49 Acquired absence of other specified parts of digestive tract; K62.4 Stenosis of anus and rectum; Z87.891 Personal history of nicotine dependence; Y83.3 Surgical operation with formation of external stoma as the cause of abnormal reaction of the patient, or of later complication, without mention of misadventure at the time of the procedure; Y92.009 Unspecified place in unspecified non-institutional (private) residence as the place of occurrence of the external cause; R74.8 Abnormal levels of other serum enzymes

== ENCOUNTER → 2019-05-12 | Outpatient (CLI) | payer MEDICARE | LOC: YCHH 12:05 | PROVIDERS: ATTEND Family Medicine | DX: D64.9 Anemia, unspecified (principal); D50.8 Other iron deficiency anemias; C61 Malignant neoplasm of prostate; N18.9 Chronic kidney disease, unspecified ==

== ENCOUNTER → 2019-05-19 | Outpatient (CLI) | payer MEDICARE ==
--- NOTE | 2019-05-19 11:08 | CT ---
EXAM DESCRIPTION: Abdomen/Pelvis w/Contrast CLINICAL HISTORY: Postoperative wound infection COMPARISON: May 01, 2019 TECHNIQUE: Postcontrast CT images of the abdomen and pelvis are obtained using standard imaging protocol. This exam was performed according to our departmental dose-optimization program, which includes automated exposure control, adjustment of the mA and/or kV according to patient size and/or use of iterative reconstruction technique . FINDINGS: Visualized lung bases show no acute findings. The liver, spleen, pancreas, and adrenal glands are unremarkable. Gallbladder poorly distended with 7 mm gallstone in the base of the gallbladder similar to previous. No inflammatory changes. Mild atherosclerotic disease. No nephrolithiasis or ureteral obstruction. Urinary bladder unremarkable. Prostate is enlarged. Colostomy in the left midabdomen. Parastomal hernia containing mesenteric fat stable. Fluid collection to the left and inferior to the colostomy now measures 2.3 x 1.8 cm on the left compared to 3.8 x 2.6 cm previously. More inferiorly, air attenuation is seen extending to the skin surface suggesting drainage of the abscess over the interval. Small linear air attenuation extending superior to a surgical clip below the colostomy posterior to the abdominal wall seen. Moderate soft tissue thickening of the left rectus muscle adjacent to the colostomy is seen. No intra-abdominal drainable fluid collection. No bowel obstruction. Laxity of the midline anterior abdominal wall above the umbilicus. Right paracentral ventral fat-containing hernia above the umbilicus is unchanged. IMPRESSION: Interval decreased size of subcutaneous fluid collection to the left and inferior of the left colostomy with findings that suggest spontaneous or surgical cutaneous drainage of the abscess inferiorly. Fat-containing parastomal hernia of the left colostomy. Moderate inflammation around the left colostomy remains and may be increased from previous. Cholelithiasis. Stable rectus diastases with right paramedian ventral hernia containing fat. Electronically signed by: Kan Jolly MD 05/19/2019 11:07 AM CDT
== END ==
LOC: CT 10:21
PROVIDERS: ATTEND Surgery
DX: T81.41XD Infection following a procedure, superficial incisional surgical site, subsequent encounter (principal); K80.20 Calculus of gallbladder without cholecystitis without obstruction; K43.9 Ventral hernia without obstruction or gangrene; Z93.3 Colostomy status

== ENCOUNTER 2019-05-27 05:25 | Day surgery (SDC) | payer MEDICARE ==
[2019-05-27] MEDS ORDERED: PROPOFOL 200 MG/20 ML VIAL IV ONE (07:00)
[2019-05-27] MEDS ORDERED: LIDOCAINE 1% 10 ML VIAL INJ ONE (07:00)
[2019-05-27] MEDS ORDERED: DEXAMETHASONE INJ 10 MG/ML VIAL ONE (07:00)
[2019-05-27] MEDS ORDERED: raNITIdine HCL INJ 25 MG/ML VIAL ONE (07:00)
[2019-05-27] MEDS ORDERED: LACTATED RINGERS 1,000 ML ONE (11:21)
[2019-05-27] MEDS ORDERED: MIDAZOLAM INJ 5 MG/5 ML VIAL ONE (11:40)
[2019-05-27] MEDS ORDERED: fentaNYL CITRATE INJ 50 MCG/ML AMP ONE (11:40)
[2019-05-27] MEDS ORDERED: KETAMINE HCL 100 MG/ML VIAL ONE (11:40)
[2019-05-27] MEDS ORDERED: ROCURONIUM BROMIDE 10 MG/ML VIAL ONE (11:46)
[2019-05-27] MEDS ORDERED: BUPIVACAINE 0.5% W/EPI 30 ML VIAL INJ ONE (12:20)
[2019-05-27] MEDS ORDERED: SUGAMMADEX SODIUM 200 MG/2 ML VIAL IV ONE (12:31)
[2019-05-27] MEDS ORDERED: LEVALBUTEROL NEBS 1.25 MG/3 ML VIAL NEB ONE (12:52)
--- NOTE | 2019-05-27 13:38 | OP ---
DATE OF PROCEDURE: 05/27/19 PREOPERATIVE DIAGNOSIS: 1. Post pericolostomy hernia repair with a wound infection. POSTOPERATIVE DIAGNOSIS: 1. Post pericolostomy hernia repair with a wound infection. PROCEDURE: 1. Incision and drainage with excisional debridement of wound, approximate size 10 by 3 cm. 2. Incision and drainage of a small abscess, separate site in the medial wound, culture taken. SURGEON: Marty Nathan MD. ANESTHESIA: General and local. FINDINGS: The small hole that had been used for packing was inadequate to get adequate packing. It did track laterally I believe to the fluid that was seen on the CT scan, but this was separate to the area that had closed off and then the medial wound was unattached to the inferior and that was incised. There was some purulence. There was a tiny piece of mesh at the bottom. COMPLICATIONS: None. ESTIMATED BLOOD LOSS: Minimal. CONDITION: Stable. PLAN: Discharge. INDICATION: Again, he had a parastomal hernia repair with a mesh onlay. He had some fluid develop and pain on CT scan. Initial cultures were negative. The wound was being packed, but the hole is small. The discharge appears slightly purulent and has gotten some redness on the medial area, so we are going to go to surgery. PROCEDURE: General anesthesia was induced. He was prepped and draped in sterile fashion. The stomal appliance was removed. We extended the inferior incision and with my finger, I probed and it tracked laterally to where the fluid was on the CT scan. We then excised some granulation tissue in that area and all the opening was now about 9 by 3 cm. We irrigated extensively. A couple of Vicryl sutures were used to tack the mesh down. There was good, healthy appearing granulation tissue around it. It was not bathed in infection, but still needs more time to granulate in this open wound. Once that was complete, the medial upper wound at the old incision, a small incision was made. There was purulence in it. A culture was taken. We opened it up a little more and probed it with an index finger. It did not track anywhere by straight down, so that was irrigated extensively and packed as well. A lot of local was used. He was awakened and taken to Recovery to be discharged. #[id number] [facility]
[2019-05-27 15:23] VITALS: BP 135/80; TEMP 98.3; O2SAT 98
== END 2019-05-27 14:55 | disposition home or self-care (01) ==
LOC: AMB 05:25
PROVIDERS: ATTEND Surgery
DX: T81.41XA Infection following a procedure, superficial incisional surgical site, initial encounter (principal); B99.9 Unspecified infectious disease; Z79.899 Other long term (current) drug therapy
CPT/HCPCS: 00400; 10180; 87070; J1100; J2250; J2780; J3010; J3490; J7120; J7614

== ENCOUNTER → 2019-06-03 | Outpatient (CLI) | payer MEDICARE ==
--- NOTE | 2019-06-04 12:20 | NM ---
EXAM DESCRIPTION: Bone Scan, Whole Body: Nuclear Medicine CLINICAL HISTORY: 68 years Male Malignant neoplasm of prostate. Bone pain. COMPARISON: CT scan of the abdomen and pelvis 19 May 2019. TECHNIQUE: Patient injected with 26.8 mCi of technetium 99M MDP IV. Delayed gamma camera images from various planes were obtained 3 hr after injection. FINDINGS: Focal uptake in the mid right humerus, mid right tibia, mid posterior right ninth rib in the midaxillary line, similar position in the posterior mid right atrium, lateral posterior right eighth rib, and possible inferior right clavicle. Also possibly in the posterior aspect of the distal left femur. Increased activity in the left upper ankle possible mortise compared to the right ankle. Probable joint activity also in the bilateral shoulders and hips. Injection site right elbow antecubital. No abnormal soft tissue activity. Possible sclerotic lesion posterior mid right eighth rib on recent CT scan. IMPRESSION: Multiple sites of long or flat bone abnormal uptake in the right mid humerus, right mid tibia, distal left femur, and right posterior ribs, and scapula. Concern for bony metastatic disease. Consider radiographic correlation. Electronically signed by: Spencer Bundy MD 06/04/2019 12:18 PM CDT
== END ==
LOC: NM 08:44
PROVIDERS: ATTEND Urology
DX: C61 Malignant neoplasm of prostate (principal)

== ENCOUNTER → 2019-06-09 | Outpatient (CLI) | payer MEDICARE | LOC: LAB.O 10:25 | PROVIDERS: ATTEND Surgery | DX: R10.9 Unspecified abdominal pain (principal) ==

== ENCOUNTER → 2019-06-17 | Outpatient (CLI) | payer MEDICARE | LOC: YCHH 10:27 | PROVIDERS: ATTEND Family Medicine | DX: D64.9 Anemia, unspecified (principal); N18.9 Chronic kidney disease, unspecified; C61 Malignant neoplasm of prostate ==

== ENCOUNTER → 2019-08-03 | Outpatient (CLI) | payer MEDICARE | LOC: YCHH 13:13 | PROVIDERS: ATTEND Family Medicine | DX: N18.9 Chronic kidney disease, unspecified (principal); C61 Malignant neoplasm of prostate; D64.9 Anemia, unspecified; D50.8 Other iron deficiency anemias ==

== ENCOUNTER 2019-08-12 08:30 | Day surgery (SDC) | payer MEDICARE ==
[~2019-08-12 08:30] MED LIST: DEXAMETHASONE INJ 10 MG/ML VIAL ONE; LIDOCAINE 1% 10 ML VIAL INJ ONE; NEOSTIGMINE METHYLSULFATE 1 MG/ML ML IV ONE; PROPOFOL 200 MG/20 ML VIAL IV ONE; SODIUM CHLORIDE 0.9% 50 ML VIAL ONE; raNITIdine HCL INJ 25 MG/ML VIAL ONE
[2019-08-12] MEDS: LACTATED RINGERS 1,000 ML ONE ×2 (10:15→13:48)
[2019-08-12] MEDS ORDERED: KETAMINE HCL 100 MG/ML VIAL ONE (11:21)
[2019-08-12] MEDS ORDERED: ROCURONIUM BROMIDE 10 MG/ML VIAL ONE (11:22)
[2019-08-12] MEDS ORDERED: fentaNYL CITRATE INJ 50 MCG/ML AMP ONE (11:22)
[2019-08-12] MEDS ORDERED: MIDAZOLAM INJ 2 MG/2 ML VIAL ONE (11:22)
[2019-08-12] MEDS ORDERED: cefOXitin SODIUM 2 GM INJ IVPB ONE (12:01)
[2019-08-12] MEDS ORDERED: SUGAMMADEX SODIUM 200 MG/2 ML VIAL IV ONE (12:25)
[2019-08-12] MEDS ORDERED: HYDROmorphone HCL INJ 2 MG/ML VIAL ONE (12:45)
[2019-08-12] MEDS ORDERED: HYDROmorphone HCL INJ 2 MG/ML VIAL IV ONE ×4 (12:47→13:18)
--- NOTE | 2019-08-12 13:31 | OP ---
DATE OF PROCEDURE: 08/12/19 PREOPERATIVE DIAGNOSIS: 1. Post pericolostomy hernia and colon revision with wound infection and unincorporated foreign body. 2. History of colitis. POSTOPERATIVE DIAGNOSIS: 1. Post pericolostomy hernia and colon revision with wound infection and unincorporated foreign body. 2. History of colitis. PROCEDURE: 1. Sigmoidoscopy. See details. 2. Debridement of wound with removal of foreign body mesh. SURGEON: Marty Nathan MD. ANESTHESIA: General and local. FINDINGS: Digital rectal exam was performed. His distal rectum viewed. Apparently, it was felt more than previous, but on direct endoscopy, there was some friable tissue. We could not get into the colon proper. There was a small false cavity. There was no evidence of intraperitoneal extension. This could be prostate involvement, however, I cannot get high enough to examine the prostate itself. Random biopsies were taken of the tissue. Biopsies were taken high and in 3 separate areas to see if we find some tissue. The previous biopsy on last surgery was normal inflammation. Once colonoscopy was completed, we took him to the Operating Suite. General anesthesia was induced. He was prepped and draped in sterile fashion. The inferior wound was examined. His medial wound, a little superior opened up again. I probed that, opened up a little bit and did find a small portion of unincorporated mesh. This was removed. The inferior unincorporated mesh had actually folded. This was removed back to incorporated mesh which was near the stoma defect, but not quite. It appears like his colon is coming through the defect a little bit, adding to some bulge, but not necessarily a new hernia. The unincorporated mesh with some granulation tissue on it was removed. We also went out laterally where he had complained of some induration. This was inferolateral. There was a slight amount of unincorporated mesh there, but otherwise just an area that appeared possibly had not been packed adequately. There was some oozing, but it was packed. There was no significant bleeding. He was then awakened after the stoma appliance was replaced and taken to Recovery to be discharged. #[id number] [facility]
[2019-08-12] MEDS ORDERED: HYDROcodone 5MG/APAP 325MG 1 EA TAB ONE (13:53)
[2019-08-12 14:06] VITALS: O2SAT 99
[2019-08-12 15:12] VITALS: BP 141/81; TEMP 98.7
== END 2019-08-12 14:55 | disposition home or self-care (01) ==
LOC: AMB 08:30
PROVIDERS: ATTEND Surgery
DX: K91.89 Other postprocedural complications and disorders of digestive system (principal); K52.9 Noninfective gastroenteritis and colitis, unspecified; Z90.49 Acquired absence of other specified parts of digestive tract; Z79.899 Other long term (current) drug therapy
CPT/HCPCS: 00400; 11042; 45331; J0694; J1170; J2250; J3010; J7120

== ENCOUNTER → 2020-02-10 | Outpatient (CLI) | payer MEDICARE | LOC: YCHH 10:33 | PROVIDERS: ATTEND Family Medicine | DX: D50.8 Other iron deficiency anemias (principal); C61 Malignant neoplasm of prostate; N18.9 Chronic kidney disease, unspecified; D64.9 Anemia, unspecified; K74.60 Unspecified cirrhosis of liver ==

== ENCOUNTER → 2020-02-16 | Outpatient (CLI) | payer MEDICARE ==
--- NOTE | 2020-02-16 14:07 | MRI ---
EXAM DESCRIPTION: Brain w/wo Contrast: Magnetic Resonance Imaging. 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 TECHNIQUE: Multiplanar, high-field MRI, multiple conventional sequences, without and with gadolinium IV contrast. No adverse reactions. Multiple axial diffusion sequences. FINDINGS: Complex, extra-axial mass with cystic components, microhemorrhage, and variable enhancement in the right cerebellopontine angle associated with the vestibular nerve. Smooth margins and appears to be extending into the IAC to the fundal cap. 2.1 x 2.5 cm in the transverse plane and 3.1 cm in the craniocaudal axis. Smooth medial margin which is exhibiting mass effect on the right ravi with shift across the midline of the ravi, pontine medullary junction, midbrain, and the fourth ventricle. No abnormal enhancement in the brainstem. Fourth ventricle is not enlarged. No diffusion restriction in the mass. Fluid surrounding the mass without enhancement and identical hyperintense T2 signal as CSF. No mass or abnormal fluid in the right semicircular canals. Minimal inferior shift of the right inferior cerebellum through the foramen magnum. Inferior cerebellar tonsils are 7 mm below the foramen magnum. No abnormal enhancement. Scattered bilateral small foci of hyperintense FLAIR and T2-weighted signal in the Subcortical white matter. Normal contrast enhancement. No hemorrhage, no cerebral edema, no mass-effect. Normal signal in the bilateral basal ganglia. Normal contrast enhancement. Normal signal in the inferior cerebral peduncles and upper brainstem with normal contrast enhancement. Concordance of the diffusion and non-diffusion sequences with no evidence of acute or subacute infarction. Lateral ventricles and third ventricle are slightly dilated, but temporal horns of the lateral ventricles not significantly dilated. Normal contrast enhancement. No extra-axial hemorrhage. Normal contrast enhancement. Normal flow signal void in the major vessels of the [place], and the venous sinuses. Left IAC unremarkable. No abnormal enhancement or mass effect in the IACs or left cerebellopontine angle. Normal signal in the bilateral mastoid air cells. Pituitary gland occupies inferior sella. Normal contrast enhancement. Increased CSF in the suprasellar cistern. Normal signal in the paranasal sinuses. No abnormal contrast enhancement. The bony calvarium is intact. IMPRESSION: 1. Complex extra-axial partially enhancing mass, 3.1 cm craniocaudal axis, with small hemorrhagic components in the right cerebellopontine angle involving the right vestibular cochlear nerve. Extends into the RIGHT IAC to the level of the fundal cap. Increased fluid around the tumor with mass effect on the right cerebellum, ravi, pontine medullary junction with left midline shift. 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 Unlikely to represent a metastasis to the cranial nerve. Bulge of the left inferior cerebellum below the foramen magnum. Tonsils 7 mm below the foramen magnum. Normal size of the fourth ventricle with enlarged third and lateral ventricles, but no significant dilation of the temporal horns. 2. No diffusion restriction in the tumor. No abnormal diffusion restriction elsewhere in the brain. Bilateral focal white matter lesions most likely related to aging or cerebral microvascular disease with no hemorrhage or abnormal contrast enhancement. Electronically signed by: Spencer Bundy MD 02/16/2020 2:06 PM CDT
== END ==
LOC: MRI 10:54
PROVIDERS: ATTEND Family Medicine
DX: D43.1 Neoplasm of uncertain behavior of brain, infratentorial (principal); R90.82 White matter disease, unspecified

== ENCOUNTER → 2020-03-08 | Outpatient (CLI) | payer MEDICARE | LOC: YCHH 10:39 | PROVIDERS: ATTEND Family Medicine | DX: C61 Malignant neoplasm of prostate (principal); N18.9 Chronic kidney disease, unspecified; D64.9 Anemia, unspecified ==